=== PATIENT | male | born 1980 | race Caucasian/White ===

== ENCOUNTER 2020-07-06 13:26 | Emergency (ER) | payer OTHER, SELFPAY ==
--- NOTE | ~2020-07-06 | XR_ITS ---
XR lumbar spine 2-3V 07/06/2020 13:53 Indication: Low back pain Procedure: 3 views lumbar spine Comparison: No prior studies for comparison. Findings: There are facet degenerative changes at L4-5. There is lumbarization of L5. No fracture or traumatic malalignment. Pedicles intact. There is disc narrowing at L4-5. Sacral foramen are symmetri c. No acute fracture or traumatic malalignment. Impression: 1: Mild lumbar spondylosis. Reviewed, dictated and finalized at location A. Impression: 1: Mild lumbar spondylosis.
[2020-07-06 13:35] VITALS: BP 149/88; PULSE 66; RESP 18; TEMP 36.3; O2SAT 100
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
[2020-07-06] MEDS: CYCLOBENZAPRINE HCL 10 MG TABLET PO (13:59)
[2020-07-06] MEDS: traMADol HCL 50 MG TABLET PO (13:59)
[2020-07-06 14:28] VITALS: BP 121/73; PULSE 65; RESP 16; O2SAT 97
== END 2020-07-06 15:12 | disposition home or self-care (01) ==
PROVIDERS: Emergency Provider Emergency Medicine
DX: M54.41 Lumbago with sciatica, right side (principal)
CPT/HCPCS: 72100; 99283; A9270

== ENCOUNTER 2021-03-02 08:47 | Outpatient (CLI) | payer BC, OTHER, SELFPAY ==
[2021-03-02 09:08] LABS: Basophils Percent Auto 0.7 % (0.2-1.2); Eosinophils Absolute Auto 0.2 K/mm3 (0-0.3); Eosinophils Percent Auto 3.7 % (0-4.4); Hematocrit 42.3 % (42.0-52.0); Hemoglobin 13.8 g/dL (14.0-18.0); Immature Granulocyte Absolute 0.01 K/mm3 (0.00-0.031); Immature Granulocyte Percent A 0.2 % (0-0.5); Lymphocytes Absolute Auto 1.37 K/mm3 (0.9-3.2); Mean Corpuscular HGB Conc 32.6 g/dl (32-36); Mean Corpuscular Hemoglobin 26.7 pg (26-34); Mean Corpuscular Volume 81.8 fl (80-100); Mean Platelet Volume 10.3 fl (7.4-10.4); Monocytes Absolute Auto 0.6 K/mm3 (0.1-0.6); Monocytes Percent Auto 9.4 % (2.6-8.5); Neutrophils Absolute Auto 3.8 K/mm3 (1.3-6.7); Platelet Count Result 207 k/mm3 (150-375); Red Blood Count 5.17 M/mm3 (4.6-6.20); Red Cell Distribution Width 14.2 % (11.5-14.5)
[2021-03-02 09:21] LABS: Alanine Aminotransferase 25 U/L (4-50); Albumin Level 4.5 g/dL (3.5-5.1); Alkaline Phosphatase 71 U/L (38-126); Anion Gap 6 mmol/L (8-16); Aspartate Amino Transferase 22 U/L (17-59); Bilirubin,Total 0.3 mg/dL (0.2-1.3); Blood Urea Nitrogen 12 mg/dL (9-20); Calcium 9.8 mg/dL (8.4-10.2); Carbon Dioxide 31 mmol/L (22-30); Chloride 105 mmol/L (98-107); Cholesterol 146 mg/dL (0-200); Estimated Glomerular Filt Rate > 60; Glucose 105 mg/dL (75-110); HDL Direct 48 mg/dL; Potassium 4.3 mmol/L (3.4-5.0); Sodium 142 mmol/L (137-145); Triglycerides 96 mg/dL (<150)
[2021-03-02 09:32] LABS: LDL Cholesterol Direct 75 mg/dL
[2021-03-02 09:52] LABS: Prostate Specific Antigen 1.7 ng/mL (< OR = 4.0)
[2021-03-05 15:21] LABS: Testosterone Free 68.7 pg/mL (35.0-155.0); Testosterone Total 384 ng/dL (250-1100)
[2021-03-06 08:28] LABS: FSH 1.4 mIU/mL (1.6-8.0); LH 3.1 mIU/mL (1.5-9.3)
[2021-03-06 20:48] LABS: Estradiol, Ultrasensitive 22 pg/mL (< OR = 29)
== END 2021-03-02 08:48 | disposition home or self-care (01) ==
PROVIDERS: PCP Internal Medicine; Visit Provider Clinical Nurse Specialist
DX: Z12.5 Encounter for screening for malignant neoplasm of prostate (principal); J45.909 Unspecified asthma, uncomplicated; N52.9 Male erectile dysfunction, unspecified; E78.5 Hyperlipidemia, unspecified; R53.83 Other fatigue
CPT/HCPCS: 36415; 80053; 80061; 82670; 83001; 83002; 84153; 84402; 84403; 84443; 85025

== ENCOUNTER 2022-08-27 07:23 | Outpatient (CLI) | payer BC, MEDICAID, SELFPAY ==
[2022-08-27 08:13] LABS: Basophils Percent Auto 0.5 % (0.2-1.2); Eosinophils Absolute Auto 0.1 K/mm3 (0-0.3); Hematocrit 42.2 % (42.0-52.0); Hemoglobin 13.7 g/dL (14.0-18.0); Immature Granulocyte Absolute 0.06 K/mm3 (0.00-0.031); Lymphocytes Absolute Auto 1.53 K/mm3 (0.9-3.2); Lymphocytes Percent Auto 25.7 % (18.3-44.2); Mean Corpuscular HGB Conc 32.5 g/dl (32-36); Mean Corpuscular Hemoglobin 26.8 pg (26-34); Mean Corpuscular Volume 82.4 fl (80-100); Mean Platelet Volume 10.2 fl (7.4-10.4); Monocytes Absolute Auto 0.7 K/mm3 (0.1-0.6); Monocytes Percent Auto 11.1 % (2.6-8.5); Neutrophils Absolute Auto 3.6 K/mm3 (1.3-6.7); Neutrophils Percent Auto 59.7 % (45.5-73.1); Platelet Count Result 204 k/mm3 (150-375); Red Blood Count 5.12 M/mm3 (4.6-6.20); Red Cell Distribution Width 14.6 % (11.5-14.5)
[2022-08-27 08:24] LABS: Hemoglobin A1C 6.1 % (<5.7)
[2022-08-27 08:29] LABS: Alanine Aminotransferase 35 U/L (6-50); Albumin Level 4.4 g/dL (3.5-5.1); Alkaline Phosphatase 81 U/L (38-126); Anion Gap 11 mmol/L (8-16); Aspartate Amino Transferase 30 U/L (17-59); Bilirubin,Total 0.3 mg/dL (0.2-1.3); Blood Urea Nitrogen 13 mg/dL (9-20); Calcium 8.7 mg/dL (8.4-10.2); Carbon Dioxide 28 mmol/L (22-30); Chloride 103 mmol/L (98-107); Cholesterol 259 mg/dL (0-200); Estimated Glomerular Filt Rate > 60; Glucose 99 mg/dL (65-110); HDL Direct 35 mg/dL; Potassium 3.9 mmol/L (3.4-5.0); Sodium 142 mmol/L (137-145); Triglycerides 383 mg/dL (<150)
[2022-08-27 08:39] LABS: LDL Cholesterol Direct 132 mg/dL
[2022-08-27 11:21] LABS: Free T4 Free Thyroxine 0.71 ng/mL (0.78-2.19)
[2022-08-27 13:39] LABS: Vitamin D 25 Hydroxy 29.5 ng/mL
== END 2022-08-27 07:24 | disposition home or self-care (01) ==
PROVIDERS: PCP Family Medicine; Visit Provider Family Medicine
DX: R53.83 Other fatigue (principal); R73.9 Hyperglycemia, unspecified; E55.9 Vitamin D deficiency, unspecified; E78.5 Hyperlipidemia, unspecified
CPT/HCPCS: 36415; 80053; 80061; 82306; 83036; 84439; 84443; 85025

== ENCOUNTER 2022-11-19 08:48 | Outpatient (CLI) | payer BC, MEDICAID, SELFPAY ==
[2022-11-21 14:08] LABS: Lead, Blood <1.0 mcg/dL (<3.5)
[2022-11-26 15:49] LABS: Collection Sample Venous
== END 2022-11-19 08:49 | disposition home or self-care (01) ==
LOC: ANHGOSHLAB 08:50
PROVIDERS: PCP Family Medicine; Visit Provider Family Medicine
DX: Z77.011 Contact with and (suspected) exposure to lead (principal)
CPT/HCPCS: 36415; 83655

== ENCOUNTER 2022-12-01 08:56 | Outpatient (CLI) | payer BC, MEDICAID, SELFPAY ==
[2022-12-01 20:41] LABS: Alanine Aminotransferase 49 U/L (6-50); Albumin Level 4.2 g/dL (3.5-5.1); Alkaline Phosphatase 89 U/L (38-126); Anion Gap 7 mmol/L (8-16); Aspartate Amino Transferase 43 U/L (17-59); Bilirubin,Total 0.4 mg/dL (0.2-1.3); Blood Urea Nitrogen 20 mg/dL (9-20); Calcium 9.2 mg/dL (8.4-10.2); Carbon Dioxide 30 mmol/L (22-30); Chloride 103 mmol/L (98-107); Cholesterol 165 mg/dL (0-200); Estimated Glomerular Filt Rate > 60; Glucose 96 mg/dL (65-110); HDL Direct 30 mg/dL; Potassium 4.4 mmol/L (3.4-5.0); Sodium 140 mmol/L (137-145); Triglycerides 92 mg/dL (<150)
[2022-12-01 20:51] LABS: LDL Cholesterol Direct 95 mg/dL
== END 2022-12-01 08:57 | disposition home or self-care (01) ==
LOC: ANHGOSHLAB 08:57
PROVIDERS: PCP Family Medicine; Visit Provider Family Medicine
DX: E78.5 Hyperlipidemia, unspecified (principal); Z79.899 Other long term (current) drug therapy
CPT/HCPCS: 36415; 80053; 80061

== ENCOUNTER 2023-06-03 08:13 | Outpatient (CLI) | payer BC, MEDICAID, SELFPAY ==
--- NOTE | 2023-06-06 16:58 | WPDPFTINT ---
PFT Procedure Performed PFT Procedure Performed Spirometry with Pre/Post Bronchodilator Plethysmography (Lung Vol) Diffusing Cap (DLCO) Flow Vol Loop PFT Interpretation This is a pulmonary function test with pre and post-bronchodilator spirometry, plethysmography and diffusing capacity. The test was performed and results interpreted in accordance with the 2019 and 2005 ATS/ERS Task Force guidelines respectively using the Global Lung Function Initiative-2012 reference equations. Patient demonstrated good effort and cooperation. Reproducibility criteria were met. The quality of the pre bronchodilator spirometry maneuver was Grade A and post bronchodilator spirometry maneuver was Grade A. Findings: Spirometry: The contour the inspiratory and expiratory flow tracing are normal. The pre bronchodilator FVC is 4.13 L, 86% predicted. The pre bronchodilator FEV1 is 3.29 L, 86% predicted. The pre bronchodilator FEV1: FVC ratio is 80%. The post bronchodilator FVC is 4.28 L, representing a 4% increase. The post bronchodilator FEV1 is 3.56 L, representing an 8% increase. The post bronchodilator FEV1: FVC ratio was 83%. Plethysmography: The total lung capacity is 6.01 L, 92% predicted. The functional residual capacity is 2.71 L, 83% predicted. The residual volume is 1.54 L, 85% predicted. Diffusing capacity: The diffusing capacity unadjusted for hemoglobin and carboxyhemoglobin is 28.1, 91% predicted. The diffusing capacity adjusted for alveolar volume is 5.14, 107% predicted. Impression: The spirometry is normal without evidence of an obstructive abnormality. There is no significant improvement after inhaling a single dose of albuterol. The lung volumes are normal. The diffusing capacity is normal. There are no prior studies for comparison
== END 2023-06-03 08:14 | disposition home or self-care (01) ==
LOC: ANHPFT 08:14
PROVIDERS: PCP Family Medicine; Visit Provider Nurse Practitioner
DX: J45.909 Unspecified asthma, uncomplicated (principal)
CPT/HCPCS: 94060; 94726; 94729

== ENCOUNTER 2023-07-11 10:38 | Outpatient (CLI) | payer BC, MEDICAID, SELFPAY ==
--- NOTE | ~2023-07-11 | XR_ITS ---
EXAMINATION: XR facial bones min 3V DATE: 07/11/2023 10:58 INDICATION: Nose injury, initial encounter. TECHNIQUE: 4 views of the facial bones were obtained. COMPARISON: None. FINDINGS: There is leftward deviation of superior nasal septum and rightward deviation of inferior na shai septum. No fracture. IMPRESSION: 1. No fracture. Reviewed, dictated and finalized at location E. IMPRESSION: 1. No fracture.
== END 2023-07-11 10:39 | disposition home or self-care (01) ==
PROVIDERS: PCP Family Medicine; Visit Provider Clinical Nurse Specialist
DX: S09.92XA Unspecified injury of nose, initial encounter (principal)
CPT/HCPCS: 70150

== ENCOUNTER 2023-09-20 12:20 | Emergency (ER) | payer BC, MEDICAID, SELFPAY ==
[2023-09-20 12:32] VITALS: BP 154/94; PULSE 90; RESP 16; TEMP 36.4; O2SAT 99
--- NOTE | 2023-09-20 12:59 | ED.GENADULT ---
HPI - General Adult General Chief complaint: Wound/Laceration Stated complaint: INFECTED TOE Source: patient Mode of arrival: ambulatory Limitations: no limitations History of Present Illness HPI narrative: 43-year-old male presented for complaint of right great toe infection for about one week. States the toe has had a bump on it since 12/2022. At that time pt was prescribed doxy by pcp, but did not take the medication. States it has not changed until recently. Endorses swelling, redness, mild pain, and some pus around the nail. States he has been walking more with a new job. Related Data Home Medications Medication Instructions Recorded Confirmed buspirone 7.5 mg tablet 7.5 mg PO TID 02/10/21 07/11/23 mometasone-formoterol HFA 50 mcg-5 inhalation 02/10/21 07/11/23 mcg/actuation aerosol inhaler (Dulera) montelukast 10 mg tablet 10 mg PO DAILY 02/10/21 07/11/23 bupropion HCl 150 mg 24 hr tablet, 300 mg PO QAM 08/03/21 07/11/23 extended release armodafinil 250 mg tablet 250 mg PO DAILY 03/17/22 07/11/23 desvenlafaxine 50 mg 50 mg PO DAILY 03/17/22 07/11/23 tablet,extended release 24 hr Allergies Allergy/AdvReac Type Severity Reaction Status Date / Time No Known Allergies Allergy Mild Verified 09/20/23 12:32 Review of Systems Review of Systems: CONSTITUTIONAL: Denies body aches, fever, chills, or sweats. EYES: Denies visual changes, redness, or discharge. ENT: Denies rhinorrhea, congestion CARDIOVASCULAR: Denies chest pain, palpitations, or edema. RESPIRATORY: Denies cough or dyspnea. GASTROINTESTINAL: Denies abdominal pain, nausea, vomiting, or diarrhea. SKIN: reports skin infection on toe MUSCULOSKELETAL: Denies back pain, joint pain, or myalgia. NEUROLOGIC: Denies headache, numbness, tingling, or weakness. [facility] Past Medical History Medical History Allergies Anxiety Arthritis Asthma Family History Family History Mother Asthma Sibling Asthma Social History Social History Social History: caffeine- 4-5 can of soda daily Smoking status: Former smoker Smoking end date: 10/24/07 Alcohol intake: never Substance use type: does not use Lack of Transportation: No Lack of Food: Never True Current Housing: I Have Housing Concerned About Future Housing: No Difficulty Paying Gas/Electric Bills: No Difficulty Paying for Meds: No Currently Unemployed: No Education: Associate Degree Difficulty w/ Childcare or Family Care: No Gender identity (if verbalized by the patient): Male Comments At time of signature, I have reviewed and agree with nursing past medical, surgical, social and family history unless otherwise noted. Please see nursing chart for further information. There is no relevant family history pertinent to the presenting complaint Exam Narrative: GENERAL: Well-appearing HEAD: Normocephalic, atraumatic. EYES: conjunctivae clear, and EOMI. ENT: Mucous membranes moist. Oropharynx without edema, erythema or lesions. NECK: Supple. No lymphadenopathy CHEST: Clear to auscultation. HEART: Regular rate and rhythm. SKIN: Warm, dry. Right great toe with mild swelling and erythema to the base of the nail. Skin is cracked and flaky. Mildly tender with palpation. No active drainage or fluctuance. Nail intact. NEURO: Alert and oriented x3. Extrem: Ankle/foot/toe images: 1. localized area of swelling and erythema to base of nail Course Course Emergency Course: Patient is aware of diagnosis, understands and agrees to treatment plan. Anticipatory guidance given. Patient agrees to follow-up as directed and is aware of reasons to seek care at the emergency department. Portions of this record may have been created with voice recognition software Level of Care: Express Care Visit Vit
== END 2023-09-20 13:10 | disposition home or self-care (01) ==
PROVIDERS: Emergency Provider Nurse Practitioner Family; PCP Family Medicine
DX: L03.031 Cellulitis of right toe (principal); Z87.891 Personal history of nicotine dependence; M19.90 Unspecified osteoarthritis, unspecified site; J45.909 Unspecified asthma, uncomplicated; F41.9 Anxiety disorder, unspecified
CPT/HCPCS: 99213; G0463

== ENCOUNTER 2023-11-22 00:41 | Day surgery (SDC) | payer BC, MEDICAID, SELFPAY ==
[2023-10-25 15:46] VITALS: BMI 34.2
--- NOTE | 2023-11-18 12:31 | SUR.PREOP ---
Patient called regarding upcoming procedure. Message left on pt's voicemail regarding appointment times.
[2023-11-22 08:34] VITALS: BP 119/80; PULSE 91; RESP 19; TEMP 36.6; O2SAT 98
[2023-11-22] MEDS: LACTATED RINGERS 1,000 ML 150 ML IV CONT (08:43)
--- NOTE | 2023-11-22 09:17 | WPDANESEPPF ---
Anes - Initial Pre Proc Eval Procedure: Operation Date: 11/22/23 09:30 Proposed Procedures p Screening Colonoscopy - Sean Arevalo MD Date/Time: 11/22/23 09:17 Surgeon: Sean Arevalo MD Pre Op Diagnosis: neoplasm screening Patient Data Age: 43 Gender: M Height: 1.73 m Weight: 98.8 kg Last Vital Signs Temp 97.8 F 11/22/23 08:34 Pulse 91 11/22/23 08:34 Resp 19 11/22/23 08:34 BP 119/80 11/22/23 08:34 Pulse Ox 98 11/22/23 08:34 O2 Del Method Room Air 11/22/23 08:34 Allergies Allergy/AdvReac Type Severity Reaction Status Date / Time No Known Allergies Allergy Mild Verified 11/22/23 08:34 Home Medications Medication Instructions Recorded Confirmed Type buspirone 7.5 mg tablet 7.5 mg PO TID 02/10/21 11/18/23 History mometasone-formoterol HFA 50 mcg-5 1 inh inhalation DAILY 02/10/21 11/18/23 History mcg/actuation aerosol inhaler (Dulera) montelukast 10 mg tablet 10 mg PO DAILY 02/10/21 11/18/23 History hydrocortisone 2.5 % topical cream 1 applic RECTAL DAILY PRN 02/12/21 11/18/23 Rx with perineal applicator hemorrhoids #30 grams (Proctosol HC) bupropion HCl 150 mg 24 hr tablet, 300 mg PO QAM 08/03/21 11/18/23 History extended release armodafinil 250 mg tablet 250 mg PO DAILY 03/17/22 11/18/23 History desvenlafaxine 50 mg 50 mg PO DAILY 03/17/22 11/18/23 History tablet,extended release 24 hr omeprazole 40 mg capsule,delayed 40 mg PO DAILY #90 caps 12/17/22 11/18/23 Rx release albuterol sulfate 90 mcg/actuation 1 puff inhalation Q4H PRN 02/14/23 11/18/23 Rx aerosol inhaler (Ventolin HFA) shortness of breath or wheezing #8.5 grams CPAP mask #1 ea 09/12/23 09/28/23 Rx mupirocin 2 % topical ointment 1 applic topical BID 14 days #22 09/20/23 11/18/23 Rx grams Patient hx anesthesia problems: none Family hx anesthesia problems: none Results Review: All pre-operative results and documents have been reviewed as part of the pre-operative evaluation. ON LICENSE OF [facility] Past Medical History Medical History Allergies Anxiety Arthritis Asthma Family History Family History Mother Asthma Sibling Asthma Social History Social History Social History: caffeine- 4-5 can of soda daily Smoking packs per day: 1 Smoking cigarettes per day: 20.0 Years smoked: 10 Smoking pack-years: 10.00 Smoking status: Former smoker Tobacco type: cigarettes Smoking end date: 10/24/08 Alcohol intake: current Drinks per week: 3 Alcohol use details: RARE Substance use: never Substance use type: does not use Lack of Transportation: No Lack of Food: Never True Current Housing: I Have Housing Concerned About Future Housing: No Difficulty Paying Gas/Electric Bills: No Difficulty Paying for Meds: No Currently Unemployed: No Education: Associate Degree Difficulty w/ Childcare or Family Care: No Living arrangements: with family Gender identity (if verbalized by the patient): Male Spiritual care concerns: No Anes - Eval Final PreProcedure Day of Procedure 11/22/23 09:17 Patient weight: obese Heart: regular rate and rhythm Lungs: clear to auscultation Airway: Mallampati scale class II Neurological: alert and oriented Last oral intake: >/= 8 hours ASA classification: II Emergent: no Anesthetic plan: proceed Anesthesia type and monitoring: general GIVS and standard monitoring Results Review: All pre-operative results and documents have been reviewed as part of the pre-operative evaluation. Informed Consent: The patient's anesthetic plan and its attendant risks and benefits were discussed with the patient/family/POA. Questions were solicited and answers provided to the satisfaction of the patient/family/POA.
--- NOTE | 2023-11-22 09:30 | PM.HPGS ---
History of Present Illness History of Present Illness Consent: Risks, benefits, and alternatives have been discussed and questions answered. Patient agrees to proceed with procedure. Chief complaint: neoplasm screening Narrative: Mukul Younger is a 43 year old male here for first screening colonoscopy Review of Systems Constitutional: Constitutional: Denies headache(s) and Denies weakness Eyes: Eyes: Denies blurry vision ENT: Reports Normal hearing present, Denies headache(s) and Denies neck pain Cardiovascular: Cardiovascular: Denies chest pain and Denies dyspnea Respiratory: Respiratory: Denies dyspnea Gastrointestinal: Gastrointestinal: Reports no additional gastrointestinal complaints Genitourinary: Genitourinary: Denies dysuria Musculoskeletal: Musculoskeletal: Denies neck pain Integumentary/Breasts: Skin/Breast: Denies dry skin Neurologic: Reports Normal hearing present, Denies headache(s) and Denies weakness Psychiatric: Psychiatric: Denies anxiety Endocrine: Endocrine: Denies change in body appearance Hematologic/Lymphatic: Hematologic/Lymphatic: Denies easy bleeding Allergic/Immunologic: Allergic/Immunologic: Denies urticaria PMF Past Medical History Medical History (Updated 11/22/23 @ 09:31 by Sean Arevalo MD) Allergies Anxiety Arthritis Asthma Colon cancer screening Family History Family History Mother Asthma Sibling Asthma Social History Social History Social History: caffeine- 4-5 can of soda daily Smoking packs per day: 1 Smoking cigarettes per day: 20.0 Years smoked: 10 Smoking pack-years: 10.00 Smoking status: Former smoker Tobacco type: cigarettes Smoking end date: 10/24/08 Alcohol intake: current Drinks per week: 3 Alcohol use details: RARE Substance use: never Substance use type: does not use Lack of Transportation: No Lack of Food: Never True Current Housing: I Have Housing Concerned About Future Housing: No Difficulty Paying Gas/Electric Bills: No Difficulty Paying for Meds: No Currently Unemployed: No Education: Associate Degree Difficulty w/ Childcare or Family Care: No Living arrangements: with family Gender identity (if verbalized by the patient): Male Spiritual care concerns: No Meds Home Medications and Allergies Home Medications Medication Instructions Recorded Confirmed Type buspirone 7.5 mg tablet 7.5 mg PO TID 02/10/21 11/18/23 History mometasone-formoterol HFA 50 mcg-5 1 inh inhalation DAILY 02/10/21 11/18/23 History mcg/actuation aerosol inhaler (Dulera) montelukast 10 mg tablet 10 mg PO DAILY 02/10/21 11/18/23 History hydrocortisone 2.5 % topical cream 1 applic RECTAL DAILY PRN 02/12/21 11/18/23 Rx with perineal applicator hemorrhoids #30 grams (Proctosol HC) bupropion HCl 150 mg 24 hr tablet, 300 mg PO QAM 08/03/21 11/18/23 History extended release armodafinil 250 mg tablet 250 mg PO DAILY 03/17/22 11/18/23 History desvenlafaxine 50 mg 50 mg PO DAILY 03/17/22 11/18/23 History tablet,extended release 24 hr omeprazole 40 mg capsule,delayed 40 mg PO DAILY #90 caps 12/17/22 11/18/23 Rx release albuterol sulfate 90 mcg/actuation 1 puff inhalation Q4H PRN 02/14/23 11/18/23 Rx aerosol inhaler (Ventolin HFA) shortness of breath or wheezing #8.5 grams CPAP mask #1 ea 09/12/23 09/28/23 Rx mupirocin 2 % topical ointment 1 applic topical BID 14 days #22 09/20/23 11/18/23 Rx grams Allergies Allergy/AdvReac Type Severity Reaction Status Date / Time No Known Allergies Allergy Mild Verified 11/22/23 08:34 Vital Signs Vital Signs - 24 hr 11/22/23 08:34 Temperature 97.8 F Pulse Rate 91 Respiratory Rate 19 Blood Pressure 119/80 Pulse Oximetry 98 Oxygen Delivery Room Air Exam Const: General: comfortable and no acut
[2023-11-22 09:57] VITALS: BP 96/60; PULSE 99; RESP 24; O2SAT 95
[2023-11-22 10:07] VITALS: BP 100/67; PULSE 97; RESP 24; O2SAT 97
[2023-11-22 10:17] VITALS: BP 113/75; PULSE 93; RESP 20; O2SAT 97
== END 2023-11-22 10:28 | disposition home or self-care (01) ==
PROVIDERS: PCP Family Medicine; Visit Provider Internal Medicine Gastroenterology
PROC: 0DJD8ZZ Inspection of Lower Intestinal Tract, Via Natural or Artificial Opening Endoscopic (ICD-10-PCS; CPT 45378; principal; 2023-11-22 09:30)
DX: Z12.11 Encounter for screening for malignant neoplasm of colon (principal); J45.909 Unspecified asthma, uncomplicated; F41.9 Anxiety disorder, unspecified; Z87.891 Personal history of nicotine dependence; E66.9 Obesity, unspecified; Z68.33 Body mass index [BMI] 33.0-33.9, adult; Z79.51 Long term (current) use of inhaled steroids
CPT/HCPCS: 45378; J2704; J7120

== ENCOUNTER 2023-11-29 00:27 | Day surgery (SDC) | payer BC, MEDICAID, SELFPAY ==
[2023-11-18 12:10] VITALS: BMI 34.2
--- NOTE | 2023-11-18 12:15 | PC.NURSE ---
Report to the Outpatient Waiting Room, entrance under the green pavilion located off [facility], at time 1030 on date 11/29/23. Planned Procedure Time: 1230. Time changes happen often and if your time is changed the preop area will call you the afternoon before. - You and your visitor will be asked to self-screen and do not enter if you have any COVID symptoms. - A mask is optional within the hospital at this time. Patients may have clear liquids (water, carbonated beverages, clear teas, apple juice) until 3 hours prior to surgery with a maximum of 20 ounces. - No food from midnight until time of surgery Take the following medications with a SIP of water the morning of surgery: INHALERS, BUPROPION, BUSPIRONE, DESVENLAFAXINE DO NOT STOP ANY OF YOUR OTHER PRESCRIPTION MEDICATIONS PRIOR TO SURGERY ?EXCEPT THE FOLLOWING Medications to discontinue per physician: N/A Date to take last dose: N/A Please no make-up, nail guinean, hairspray, perfume, deodorant, or body powder the day of surgery. No jewelry (including any body piercings) or valuables the day of surgery, leave them at home. Please take a shower or bath the night before, or the morning of, surgery with an antibacterial soap. Wear comfortable, loose fitting clothing. - Jewelry must be removed prior to entering the operating room. Rings and piercings that are not removed may be cut off. - The hospital will not accept responsibility for valuables. - Please leave all valuables, including medications, at home the day of surgery. If you are going home after surgery, a licensed carrier driver must drive you home. - NO public transportation without another adult if you receive anesthesia. - We recommend that an adult stay with you for 24 hours following discharge. - We also recommend that you do not drive, make important decision, drink alcoholic beverages, or take any drugs that were not prescribed by your health care provider for at least 24 hours after your discharge time. Follow any additional instructions given to you from your surgeon. If you or anyone in your household have experienced Covid symptoms in the past week, please notify your surgeon or the nurse liaison at the phone number below for possible testing. Telephone instructions given to PT - NIMCO JONES and asked if any additional questions and then verbalized understanding. Patient advised to call surgeon office or pre surgery nurse liaison [phone] if any additional questions.
--- NOTE | 2023-11-27 16:24 | PM.IMHP ---
H&P: HPI History of Present Illness Date/Time: 11/27/23 16:24 Chief Complaint: septal deviation turbinate hypertrophy Narrative: planned procedure Review of Systems Review of Systems: All systems reviewed & are unremarkable except as noted in HPI and below PMFSH Past Medical History Medical History (Updated 11/27/23 @ 16:25 by Blane Lynn MD) Allergies Anxiety Arthritis Asthma Colon cancer screening Family History Family History Mother Asthma Sibling Asthma Social History Social History Social History: caffeine- 4-5 can of soda daily Smoking packs per day: 1 Smoking cigarettes per day: 20.0 Years smoked: 10 Smoking pack-years: 10.00 Smoking status: Former smoker Tobacco type: cigarettes Smoking end date: 10/24/08 Alcohol intake: current Drinks per week: 3 Alcohol use details: RARE Substance use: never Substance use type: does not use Lack of Transportation: No Lack of Food: Never True Current Housing: I Have Housing Concerned About Future Housing: No Difficulty Paying Gas/Electric Bills: No Difficulty Paying for Meds: No Currently Unemployed: No Education: Associate Degree Difficulty w/ Childcare or Family Care: No Living arrangements: with family Gender identity (if verbalized by the patient): Male Spiritual care concerns: No Meds Home Medications and Allergies Home Medications Medication Instructions Recorded Confirmed Type buspirone 7.5 mg tablet 7.5 mg PO TID 02/10/21 11/18/23 History mometasone-formoterol HFA 50 mcg-5 1 inh inhalation DAILY 02/10/21 11/18/23 History mcg/actuation aerosol inhaler (Dulera) montelukast 10 mg tablet 10 mg PO DAILY 02/10/21 11/18/23 History hydrocortisone 2.5 % topical cream 1 applic RECTAL DAILY PRN 02/12/21 11/18/23 Rx with perineal applicator hemorrhoids #30 grams (Proctosol HC) bupropion HCl 150 mg 24 hr tablet, 300 mg PO QAM 08/03/21 11/18/23 History extended release armodafinil 250 mg tablet 250 mg PO DAILY 03/17/22 11/18/23 History desvenlafaxine 50 mg 50 mg PO DAILY 03/17/22 11/18/23 History tablet,extended release 24 hr omeprazole 40 mg capsule,delayed 40 mg PO DAILY #90 caps 12/17/22 11/18/23 Rx release albuterol sulfate 90 mcg/actuation 1 puff inhalation Q4H PRN 02/14/23 11/18/23 Rx aerosol inhaler (Ventolin HFA) shortness of breath or wheezing #8.5 grams CPAP mask #1 ea 09/12/23 09/28/23 Rx mupirocin 2 % topical ointment 1 applic topical BID 14 days #22 09/20/23 11/18/23 Rx grams Allergies Allergy/AdvReac Type Severity Reaction Status Date / Time No Known Allergies Allergy Mild Verified 11/22/23 08:34 Exam Narrative: septal deviation turbinate hypertrophy Assessment and Plan Assessment and plan (1) Nasal septal deviation: Code(s): J34.2 - Deviated nasal septum Status: Acute Assessment and Plan: Plan moving forward OR for septoplasty endoscopic assisted need at least 2 hours would have to do a hemitransection incision up front.? His severe left caudal deviation.? And turbinate reduction bilaterally with outfracture inferior.? Risks were discussed including bleeding infection deaths high risk of cosmetic deformity given the caudal obstruction failure to resolve symptoms septal perforation CSF leak brain brain damage change in vision total blindness need for further procedures failure to resolve symptoms damage to any structures above the clavicle by myself damage to any structures during the induction and maintenance of anesthesia. (2) Hypertrophy of both inferior nasal turbinates: Code(s): J34.3 - Hypertrophy of nasal turbinates Status: Acute
[2023-11-29] VITALS (7 sets, daily range): BP systolic 109–145; BP diastolic 68–93; PULSE 83–103; RESP 11–16; TEMP 36.2–36.4; O2SAT 93–100
--- NOTE | 2023-11-29 07:16 | WPDHPUPDATE1 ---
History and Physical Update Update Date/Time: 11/29/23 07:16 History and Physical has been reviewed, including an updated exam of the patient. There are NO changes in the patient's condition. Risks, benefits, and alternatives have been discussed and questions answered. Patient agrees to proceed with procedure.
[2023-11-29] MEDS: LACTATED RINGERS 1,000 ML 30 ML IV CONT ×2 (10:37→14:19)
[2023-11-29] MEDS: ACETAMINOPHEN 500 MG TABLET 1000 MG PO (10:37)
--- NOTE | 2023-11-29 11:53 | WPDANESEPPF ---
Anes - Initial Pre Proc Eval Procedure: Operation Date: 11/29/23 12:45 Proposed Procedures p Endoscopic Assisted Septoplasty - Blane Lynn MD s Bilateral Inferior Turbinate Reduction with Outfracture - Blane Lynn MD Date/Time: 11/29/23 11:53 Surgeon: Blane Lynn MD Pre Op Diagnosis: Septal Dev, Turbinate Hypertrophy Patient Data Age: 43 Gender: M Height: 1.73 m Weight: 102.1 kg Last Vital Signs Temp 36.4 C 11/29/23 10:19 Pulse 83 11/29/23 10:19 Resp 16 11/29/23 10:19 BP 131/84 11/29/23 10:19 Pulse Ox 99 11/29/23 10:19 O2 Del Method Room Air 11/29/23 10:19 Allergies Allergy/AdvReac Type Severity Reaction Status Date / Time No Known Allergies Allergy Mild Verified 11/29/23 10:14 Home Medications Medication Instructions Recorded Confirmed Type buspirone 7.5 mg tablet 7.5 mg PO TID 02/10/21 11/18/23 History mometasone-formoterol HFA 50 mcg-5 1 inh inhalation DAILY 02/10/21 11/18/23 History mcg/actuation aerosol inhaler (Dulera) montelukast 10 mg tablet 10 mg PO DAILY 02/10/21 11/18/23 History hydrocortisone 2.5 % topical cream 1 applic RECTAL DAILY PRN 02/12/21 11/18/23 Rx with perineal applicator hemorrhoids #30 grams (Proctosol HC) bupropion HCl 150 mg 24 hr tablet, 300 mg PO QAM 08/03/21 11/18/23 History extended release armodafinil 250 mg tablet 250 mg PO DAILY 03/17/22 11/18/23 History desvenlafaxine 50 mg 50 mg PO DAILY 03/17/22 11/18/23 History tablet,extended release 24 hr omeprazole 40 mg capsule,delayed 40 mg PO DAILY #90 caps 12/17/22 11/18/23 Rx release albuterol sulfate 90 mcg/actuation 1 puff inhalation Q4H PRN 02/14/23 11/18/23 Rx aerosol inhaler (Ventolin HFA) shortness of breath or wheezing #8.5 grams CPAP mask #1 ea 09/12/23 09/28/23 Rx mupirocin 2 % topical ointment 1 applic topical BID 14 days #22 09/20/23 11/18/23 Rx grams Patient hx anesthesia problems: none Family hx anesthesia problems: none Results Review: All pre-operative results and documents have been reviewed as part of the pre-operative evaluation. [facility] Past Medical History Medical History Allergies Anxiety Arthritis Asthma Colon cancer screening Surgical History Surgical History (Updated 11/29/23 @ 11:54 by Conner Morse MD) H/O colonoscopy History of lumbar surgery Family History Family History Mother Asthma Sibling Asthma Social History Social History Social History: caffeine- 4-5 can of soda daily Smoking packs per day: 1 Smoking cigarettes per day: 20.0 Years smoked: 10 Smoking pack-years: 10.00 Smoking status: Former smoker Tobacco type: cigarettes Smoking end date: 10/24/08 Alcohol intake: current Drinks per week: 3 Alcohol use details: RARE Substance use: never Substance use type: does not use Lack of Transportation: No Lack of Food: Never True Current Housing: I Have Housing Concerned About Future Housing: No Difficulty Paying Gas/Electric Bills: No Difficulty Paying for Meds: No Currently Unemployed: No Education: Associate Degree Difficulty w/ Childcare or Family Care: No Living arrangements: with family Gender identity (if verbalized by the patient): Male Spiritual care concerns: No Anes - Eval Final PreProcedure Day of Procedure 11/29/23 11:53 Patient weight: obese Heart: regular rate and rhythm Lungs: clear to auscultation Airway: Mallampati scale class II Neurological: alert and oriented Last oral intake: >/= 8 hours ASA classification: III Emergent: no Anesthetic plan: proceed Anesthesia type and monitoring: general ETT and standard monitoring Results Review: All pre-operative results and documents have been reviewed as part of the pre-operative evaluation. Informed Consent: The mare
[2023-11-29] MEDS: ceFAZolin 2 GM/D5W 50 ML 2 GM/50 ML BAG IVPB (12:32)
[2023-11-29] MEDS: LIDO 1%/EPINEPHRINE 1:100,000 20 ML VIAL 10 ML INFILTRATE (12:48)
[2023-11-29] MEDS: OXYMETAZOLINE HCL 0.05% NAS 15 ML BTL (*BKC) 1 SPRAY NASAL (12:48)
[2023-11-29] MEDS: HEMOSTATIC MATRIX (SURGIFLO with THROMBIN) KIT 1 KIT XX (13:48)
[2023-11-29] MEDS: MUPIROCIN 2% OINT 22 GM TUBE 1 APPLIC EACH NARE (14:04)
--- NOTE | 2023-11-29 14:48 | W.PM.PROC2 ---
Procedure Note - Detailed Date of Procedure 11/29/23 Pre-op Diagnosis Septal Dev, Turbinate Hypertrophy Post-op Diagnosis Same Procedure Performed Endoscopic assisted septoplasty inferior turbinate reduction with outfractu Surgeon Blane Lynn MD Anesthesia General Indications see above Findings severe left septal [place] incision utilized. No cosmetic deformity no concomitant tears. Turbinate hypertrophy well reduced most was bony. Description of Procedure Patient identified consent verified preop. Patient brought to the operating room. Time-out performed. General anesthesia induced endotracheal tube secured airway. Patient prepped draped position procedure confirmed 2nd time-out performed. Afrin-soaked pledgets placed for 5 minutes then removed. 0 degree endoscope utilized. Total 13 cc 1% lidocaine 1 100,000 parts epinephrine injected in the bilateral nasal septum. Inferior turbinates. Anterior [place] incision made left side with 15 blade left nasal septal flap elevated with 7 Czech suction. Osteotome utilized to cross over anteriorly right nasal septal flap elevated small tear posteriorly over spur as there is right-sided spur posterior deviation. Deviated septum removed Donta Herrera forceps Anh forceps and osteotome. Multiple in a 1 tear on each side not concomitant. The left was actually just an extension of the [place] incision inferiorly. FloSeal packed against the inferior portion of the maxillary crest this was bleeding minimally. Bleeding enough to put FloSeal against but bleeding minimally. [place] incision then closed with 4 interrupted 5 0 fast gut sutures. Turbinates reduced in submucosal plane using [employer] microdebrider with 2.5 mm plate. Turbinates and outfracture. Small amount of FloSeal placed anterior portion the inferior turbinates. Stallings splints placed sutured anteriorly using a 3-0 mattress nylon suture. Blood loss 15 cc. I performed all dictated portions procedure no complications. Care the patient given back to Anesthesiology. Patient taken to PACU. Estimated Blood Loss 15 Drains No Packing No Pathology None sent Complications No immediate complications Condition Stable Disposition PACU [facility] Billing Surgery - Charge Forward: Surgery Billing
== END 2023-11-29 15:31 | disposition home or self-care (01) ==
PROVIDERS: PCP Family Medicine; Visit Provider Otolaryngology
PROC: (CPT 30520; principal; 2023-11-29 12:45)
PROC: (CPT 30520; 2023-11-29 12:45)
DX: J34.3 Hypertrophy of nasal turbinates (principal); J34.2 Deviated nasal septum; J45.909 Unspecified asthma, uncomplicated; F41.9 Anxiety disorder, unspecified; Z79.51 Long term (current) use of inhaled steroids; Z87.891 Personal history of nicotine dependence; E66.9 Obesity, unspecified; Z68.34 Body mass index [BMI] 34.0-34.9, adult
CPT/HCPCS: 30520; 30140; A9270; J0330; J0690; J1100; J2250; J2405; J2704; J3010; J7050; J7120

== ENCOUNTER 2024-01-16 07:42 | Outpatient (CLI) | payer BC, MEDICAID, SELFPAY ==
[2024-01-16 08:05] LABS: Basophils Percent Auto 0.5 % (0.2-1.2); Eosinophils Absolute Auto 0.2 K/mm3 (0-0.3); Hematocrit 42.8 % (42.0-52.0); Hemoglobin 13.9 g/dL (14.0-18.0); Immature Granulocyte Absolute 0.02 K/mm3 (0.00-0.031); Immature Granulocyte Percent A 0.3 % (0-0.5); Lymphocytes Percent Auto 24.2 % (18.3-44.2); Mean Corpuscular HGB Conc 32.5 g/dl (32-36); Mean Corpuscular Hemoglobin 27.9 pg (26-34); Mean Corpuscular Volume 85.8 fl (80-100); Monocytes Absolute Auto 0.5 K/mm3 (0.1-0.6); Monocytes Percent Auto 9.3 % (2.6-8.5); Neutrophils Absolute Auto 3.6 K/mm3 (1.3-6.7); Neutrophils Percent Auto 61.7 % (45.5-73.1); Platelet Count Result 215 k/mm3 (150-375); Red Blood Count 4.99 M/mm3 (4.6-6.20); Red Cell Distribution Width 14.6 % (11.5-14.5); White Blood Count 5.8 K/mm3 (4.5-10.0)
[2024-01-16 08:14] LABS: Alanine Aminotransferase 27 U/L (6-50); Albumin Level 4.3 g/dL (3.5-5.1); Alkaline Phosphatase 100 U/L (38-126); Anion Gap 3 mmol/L (8-16); Aspartate Amino Transferase 26 U/L (17-59); Bilirubin,Total 0.4 mg/dL (0.2-1.3); Blood Urea Nitrogen 15 mg/dL (9-20); Calcium 9.6 mg/dL (8.4-10.2); Carbon Dioxide 34 mmol/L (22-30); Chloride 103 mmol/L (98-107); Cholesterol 239 mg/dL (0-200); Estimated Glomerular Filt Rate > 60; Glucose 104 mg/dL (65-110); HDL Direct 33 mg/dL; Potassium 4.3 mmol/L (3.4-5.0); Sodium 140 mmol/L (137-145); Triglycerides 328 mg/dL (<150)
[2024-01-16 08:25] LABS: LDL Cholesterol Direct 136 mg/dL
[2024-01-16 08:53] LABS: Free T4 Free Thyroxine 0.63 ng/mL (0.78-2.19); Vitamin D 25 Hydroxy 85.6 ng/mL
== END 2024-01-16 07:43 | disposition home or self-care (01) ==
LOC: ANHLAB 07:44
PROVIDERS: PCP Family Medicine; Visit Provider Family Medicine
DX: E55.9 Vitamin D deficiency, unspecified (principal); R73.03 Prediabetes; E78.5 Hyperlipidemia, unspecified; R53.83 Other fatigue
CPT/HCPCS: 36415; 80053; 80061; 82306; 83036; 84439; 84443; 85025

== ENCOUNTER 2024-10-23 08:10 | Outpatient (CLI) | payer BC, MEDICAID, SELFPAY ==
[2024-10-23 09:01] LABS: Alanine Aminotransferase 31 U/L (6-50); Albumin Level 4.3 g/dL (3.5-5.1); Alkaline Phosphatase 84 U/L (38-126); Anion Gap 3 mmol/L (4-12); Aspartate Amino Transferase 27 U/L (17-59); Bilirubin,Total 0.5 mg/dL (0.2-1.3); Blood Urea Nitrogen 14 mg/dL (9-20); Calcium 9.3 mg/dL (8.4-10.2); Carbon Dioxide 32 mmol/L (22-30); Chloride 104 mmol/L (98-107); Cholesterol 270 mg/dL (0-200); Estimated Glomerular Filt Rate > 60; Glucose 106 mg/dL (65-110); HDL Direct 40 mg/dL; Potassium 4.3 mmol/L (3.4-5.0); Sodium 139 mmol/L (137-145); Triglycerides 243 mg/dL (<150)
[2024-10-23 09:12] LABS: LDL Cholesterol Direct 152 mg/dL
[2024-10-23 09:16] LABS: Hemoglobin A1C 6.2 % (<5.7)
== END 2024-10-23 08:11 | disposition home or self-care (01) ==
PROVIDERS: PCP Family Medicine
DX: E66.09 Other obesity due to excess calories (principal)
CPT/HCPCS: 36415; 80053; 80061; 83036; 84443

== ENCOUNTER 2025-04-10 07:28 | Outpatient (CLI) | payer BC, MEDICAID, SELFPAY ==
--- OUTSIDE RECORDS SUMMARY | 2025-04-10 07:33 | XMS_ITS | Patient Health Record ---
Author Organization [facility] [employer] Address [address] [place] [address] Care Team Providers Care Business Operations Specialist Name Role Phone Marion RODRIGUEZ DO Primary Care Provider Unava Marlyn Rodriguez Unavailable [phone] JordenDoug kerrjay Unavailable [phone] Jeri Capone Unavailable [phone] Allergies No Known Allergies Results Component Value Reference Range Notes Methylphenidate Reviewed date:02/04/2025 02:49:09 PM Interpretation: Performing Lab:[address] [place] [address], [address] [place] [address], Director - [id number] Notes/Report: An exception occurred while processing this report and so it has incomplete data. Please contact [facility] for assistance. Methylphenidate 305.8 50.0 ng/mL Medicated Co nsistent PDF Report CE_OUT_RAW_C OMMON_SRC_OR U Stimulants Reviewed date:02/04/2025 02:49:36 PM Interpretation: Performing Lab: Notes/Report: NEED PHYSICIAN SIGNATURE Reviewed date:02/04/2025 02:49:16 PM Interpretation: Performing Lab: Notes/Report: Screening Reviewed date:02/04/2025 02:49:13 PM Interpretation: Performing Lab: Notes/Report: UDT Reviewed date:03/29/2025 11:50:37 AM Interpretation: Performing Lab: Notes/Report: THC n 0 - 50 ng/ml Cocaine n 0 - 300 ng/ml Amphetamine p 0 - 1000 ng/ml Buprenorphine (BUP) n 0 - 10 ng/ml Secobarbital (Bar) n 0 - 300 ng/ml Oxazepam (BZO) n 0 - 300 ng/ml 7-mxrxkjuunw-2,2-vogersnj-8, 3-diphen ylpyrrolidine (EDDP) n 0 - 300 ng/ml Methamphetamine (MET) n 0 - 1000 ng/ml Methylenedioxymethamphetamine (MDMA) n 0 - 500 ng/ml Morphine (MOP 300/WKZ3510) n 0 - 300 ng/ml Methadone (MTD) n 0 - 300 ng/ml Phencyclidine (PCP) n 0 - 25 ng/ml Nortriptyline (TCA) n 0 - 1000 ng/ml Oxycodone n 0 - 300 ng/ml x n 0 - 300 ng/ml UDT Reviewed date:02/22/2025 12:22:29 PM Interpretation: Performing Lab: Notes/Report: THC N 0 - 50 ng/ml Cocaine N 0 - 300 ng/ml Amphetamine P 0 - 1000 ng/ml Buprenorphine (BUP) N 0 - 10 ng/ml Secobarbital (Bar) N 0 - 300 ng/ml Oxazepam (BZO) N 0 - 300 ng/ml 4-plcefebmnk-9,1-macfxbmg-9, 3-diphen ylpyrrolidine (EDDP) N 0 - 300 ng/ml Methamphetamine (MET) N 0 - 1000 ng/ml Methylenedioxymethamphetamine (MDMA) N 0 - 500 ng/ml Morphine (MOP 300/[id number]) N 0 - 300 ng/ml Methadone (MTD) N 0 - 300 ng/ml Phencyclidine (PCP) N 0 - 25 ng/ml Nortriptyline (TCA) N 0 - 1000 ng/ml Oxycodone N 0 - 300 ng/ml x N 0 - 300 ng/ml UDT Reviewed date:01/24/2025 01:39:29 PM Interpretation: Performing Lab: Notes/Report: THC N 0 - 50 ng/ml Cocaine N 0 - 300 ng/ml Amphetamine N 0 - 1000 ng/ml Buprenorphine (BUP) N 0 - 10 ng/ml Secobarbital (Bar) N 0 - 300 ng/ml Oxazepam (BZO) N 0 - 300 ng/ml 7-rntwhanefn-9,7-wcppbwta-6, 3-diphen ylpyrrolidine (EDDP) N 0 - 300 ng/ml Methamphetamine (MET) N 0 - 1000 ng/ml Methylenedioxymethamphetamine (MDMA) N 0 - 500 ng/ml Morphine (MOP 300/WPH3394) N 0 - 300 ng/ml Methadone (MTD) N 0 - 300 ng/ml Phencyclidine (PCP) N 0 - 25 ng/ml Nortriptyline (TCA) N 0 - 1000 ng/ml Oxycodone N 0 - 300 ng/ml x N 0 - 300 ng/ml UDT Reviewed date:08/28/2024 11:51:27 AM Interpretation: Performing Lab: Notes/Report: THC n 0 - 50 ng/ml Cocaine n 0 - 300 ng/ml Amphetamine n 0 - 1000 ng/ml Buprenorphine (BUP) n 0 - 10 ng/ml Secobarbital (Bar) n 0 - 300 ng/ml Oxazepam (BZO) n 0 - 300 ng/ml 7-hnfbhuppja-7,0-camglbfx-6, 3-diphen ylpyrrolidine (EDDP) n 0 - 300 ng/ml Methamphetamine (MET) n 0 - 1000 ng/ml Methylenedioxymethamphetamine (MDMA) n 0 - 500 ng/ml Morphine (MOP 300/WDK2746) n 0 - 300 ng/ml Methadone (MTD) n 0 - 300 ng/ml Phencyclidine (PCP) n 0 - 25 ng/ml Nortriptyline (TCA) n 0 - 1000 ng/ml Oxycodone n 0 - 300 ng/ml x n 0 - 300 ng/ml UDT Reviewed date:07/31/2024 09:26:20 AM Interpretation: Performing Lab: Notes/Report: THC n 0 - 50 ng/ml Cocaine n 0 - 300 ng/ml Amphetamine n 0 - 1000 ng/ml Buprenorphine (BUP) n 0 - 10 ng/ml Secobarbital (Bar) n 0 - 300 ng/ml Oxazepam (BZO) n 0 - 300 ng/ml 3-qkellwbmgo-6,3-ewsnurnc-1, 3-diphen ylpyrrolidine (EDDP) n 0 - 300 ng/ml Methamphetamine (MET) n 0 - 1000 ng/ml Methylenedioxymethamphetamine (MDMA) n 0 - 500 ng/ml Morphine (MOP 300/[id number]) n 0 - 300 ng/ml Methadone (MTD) n 0 - 300 ng/ml Phencyclidine (PCP) n 0 - 25 ng/ml Nortriptyline (TCA) n 0 - 1000 ng/ml Oxycodone n 0 - 300 ng/ml x n 0 - 300 ng/ml DRUG MONITOR,METHYLPHENID ME TAB, QN, URINE (58781) Reviewed date:12/04/2024 02:56:47 PM Interpretation: Performing Lab:[facility] Claro Grayson-Yousif [address] [facility], Yousif AlexanderWqxnSQ[address] Syed Gardner, Director - [id number] [facility] Notes/Report: FASTING: NO Ritalinic Acid >00765 <100 ng/mL Ritalinic Acid Comments See Ritalinic Acid Notes, LDT Notes Notes and Comments This drug testing is for medical treatment only. Analysis was performed as non-forensic testing and these results should be used only by healthcare providers to render diagnosis or treatment, or to monitor progress of medical conditions. Ritalinic Acid Notes: Ritalinic Acid detected is consistent with the use of the drug Methylphenidate. LDT Notes: Confirmation tests were developed and their analytical performance characteristics have been determined by [employer]. It has not been cleared or approved by the FDA. This assay has been validated pursuant to the CLIA regulations and is used for clinical purposes. Healthcare Providers needing Interpretation assistance, please contact us at [phone] ( ) M-F, 8am to 10pm EST Reason For Referral No Information Medications Medication SIG (Take, Route, Frequency, Duration) Notes Start Date End Date Status Montelukast Sodium 10 MG TAKE 1 TABLET BY MOUTH EVERY DAY DIRECTED Oral for 90 Days Active Omeprazole 40 MG TAKE 1 CAPSULE BY MOUTH EVERY DAY Oral for 90 Days Active Semaglutide(0.25 or 0.5MG/DOS) 2 MG/3ML as directed Subcutaneous Active Tadalafil 5 MG 1 tablet as needed Orally Once a day Active busPIRone HCl 10 MG 1 tablet Oral Twice a day Active Desvenlafaxine Succinate ER 100 MG 1 tablet Orally Once a day for 90 days Active Amphetamine-Dextroam phet ER 25 MG 1 capsule in the morning Orally Once a day increase dose, he is no longer on methylphenidate too 03/20/2025 Active Amphetamine-Dextroam phet ER 20 MG 1 capsule every morning Orally Once a day for 30 days Stopping Concerta 01/23/2025 Active Amphetamine-Dextroam phetamine 10 MG 1 tablet Oral daily in afternoon As needed 03/20/2025 Active Desvenlafaxine Succinate ER 100 mg TAKE 1 TABLET BY MOUTH DAILY Active Immunizations Vaccine Route Administration Date Status Comme nts Moderna Covid-19 Vaccine 1st dose Unknown 01/15/2021 Ad ministered Moderna Covid-19 Vaccine 1st dose Unknown 02/12/2021 Ad ministered Moderna Covid-19 Vaccine 1st dose Unknown 09/22/2021 Ad ministered Social History Tobacco Use: Social History Observation Description Date Details (start date - stop date) Former Smoker NA - NA Sex Assigned At : Social History Observation Description Sex Assigned At Male Household Question Answer Notes Marital status: Tobacco Control (Standard) Question Answer Notes Tobacco use: Former smoker AUDIT-C (Standard) Question Answer Notes Points 2 Did you have a drink contain ing alcohol in the past year? Yes How often did you have six o r more drinks on one occasion in the past year? Never (0 point) How many drinks did you have on a typical day when you were drinking in the past year? 1 or 2 drinks (0 point) How often did you have a dri nk containing alcohol in the past year? Monthly or less (1 point) Section Notes: Social History Substance Use Do you or have you ever smoked tobacco?: Former smoker How much tobacco do you smoke?: None When did you quit smoking?: 16+ years since last cigarette Do you or have you ever used e-cigarettes or vape?: Never used electronic cigarettes What was the date of your most recent tobacco screening?: 06/12/2024 Has tobacco cessation counseling been provided?: No What is your level of alcohol consumption?: Occasional How many years have you consumed alcohol?: 24 Do you use any illicit or recreational drugs?: Yes Which illicit or recreational drugs have you used?: Marijuana Have you used IV drugs?: No What is your level of caffeine consumption?: Heavy Education and Occupation What is the highest grade or level of school you have completed or the highest degree you have received?: Associate degree: academic program Are you currently employed?: Yes Who is your employer?: [employer] Marriage and Sexuality What is your relationship status?: Are you sexually active?: Yes Do you use protection during sex?: No How many children do you have?: 7 Home and Environment Are there any smokers in your house?: No Are there any guns present in your home?: No Advance Directive Do you have an advance directive?: No Do you have a medical power of employment attorney?: No Social History Substance Use Do you or have you ever smoked tobacco?: Former smoker How much tobacco do you smoke?: None When did you quit smoking?: 16+ years since last cigarette Do you or have you ever used e-cigarettes or vape?: Never used electronic cigarettes What was the date of your most recent tobacco screening?: 06/12/2024 Has tobacco cessation counseling been provided?: No What is your level of alcohol consumption?: Occasional How many years have you consumed alcohol?: 24 Do you use any illicit or recreational drugs?: Yes Which illicit or recreational drugs have you used?: Marijuana Have you used IV drugs?: No What is your level of caffeine consumption?: Heavy Education and Occupation What is the highest grade or level of school you have completed or the highest degree you have received?: Associate degree: academic program Are you currently employed?: Yes Who is your employer?: [employer] What is your relationship status?: Are you sexually active?: Yes Do you use protection during sex?: No How many children do you have?: 7 Home and Environment Are there any smokers in your house?: No Are there any guns present in your home?: No Advance Directive Do you have an advance directive?: No Do you have a medical power of employment attorney?: No Social History Substance Use Do you or have you ever smoked tobacco?: Former smoker How much tobacco do you smoke?: None When did you quit smoking?: 16+ years since last cigarette Do you or have you ever used e-cigarettes or vape?: Never used electronic cigarettes What was the date of your most recent tobacco screening?: 01/13/2024 Has tobacco cessation counseling been provided?: No What is your level of alcohol consumption?: Occasional How many years have you consumed alcohol?: 24 Do you use any illicit or recreational drugs?: Yes Which illicit or recreational drugs have you used?: Marijuana Have you used IV drugs?: No What is your level of caffeine consumption?: Heavy Education and Occupation What is the highest grade or level of school you have completed or the highest degree you have received?: Associate degree: academic program Are you currently employed?: Yes Who is your employer?: [employer] What is your relationship status?: Are you sexually active?: Yes Do you use protection during sex?: No How many children do you have?: 7 Home and Environment Are there any smokers in your house?: No Are there any guns present in your home?: No Advance Directive Do you have an advance directive?: No Do you have a medical power of employment attorney?: No Social History Substance Use Do you or have you ever smoked tobacco?: Former smoker How much tobacco do you smoke?: None When did you quit smoking?: 16+ years since last cigarette Do you or have you ever used e-cigarettes or vape?: Never used electronic cigarettes What was the date of your most recent tobacco screening?: 06/12/2024 Has tobacco cessation counseling been provided?: No What is your level of alcohol consumption?: Occasional How many years have you consumed alcohol?: 24 Do you use any illicit or recreational drugs?: Yes Which illicit or recreational drugs have you used?: Marijuana Have you used IV drugs?: No What is your level of caffeine consumption?: Heavy Education and Occupation What is the highest grade or level of school you have completed or the highest degree you have received?: Associate degree: academic program Are you currently employed?: Yes Who is your employer?: [employer] What is your relationship status?: Are you sexually active?: Yes Do you use protection during sex?: No How many children do you have?: 7 Home and Environment Are there any smokers in your house?: No Are there any guns present in your home?: No Advance Directive Do you have an advance directive?: No Do you have a medical power of employment attorney?: No Social History Substance Use Do you or have you ever smoked tobacco?: Former smoker How much tobacco do you smoke?: None When did you quit smoking?: 16+ years since last cigarette Do you or have you ever used e-cigarettes or vape?: Never used electronic cigarettes What was the date of your most recent tobacco screening?: 01/13/2024 Has tobacco cessation counseling been provided?: No What is your level of alcohol consumption?: Occasional How many years have you consumed alcohol?: 24 Do you use any illicit or recreational drugs?: Yes Which illicit or recreational drugs have you used?: Marijuana Have you used IV drugs?: No What is your level of caffeine consumption?: Heavy Education and Occupation What is the highest grade or level of school you have completed or the highest degree you have received?: Associate degree: academic program Are you currently employed?: Yes Who is your employer?: [employer] Marriage and Sexuality What is your relationship status?: Are you sexually active?: Yes Do you use protection during sex?: No How many children do you have?: 7 Home and Environment Are there any smokers in your house?: No Are there any guns present in your home?: No Advance Directive Do you have an advance directive?: No Do you have a medical power of employment attorney?: No Social History Substance Use Do you or have you ever smoked tobacco?: Former smoker How much tobacco do you smoke?: None When did you quit smoking?: 16+ years since last cigarette Do you or have you ever used e-cigarettes or vape?: Never used electronic cigarettes What was the date of your most recent tobacco screening?: 06/12/2024 Has tobacco cessation counseling been provided?: No What is your level of alcohol consumption?: Occasional How many years have you consumed alcohol?: 24 Do you use any illicit or recreational drugs?: Yes Which illicit or recreational drugs have you used?: Marijuana Have you used IV drugs?: No What is your level of caffeine consumption?: Heavy Education and Occupation What is the highest grade or level of school you have completed or the highest degree you have received?: Associate degree: academic program Are you currently employed?: Yes Who is your employer?: [employer] Marriage and Sexuality What is your relationship status?: Are you sexually active?: Yes Do you use protection during sex?: No How many children do you have?: 7 Home and Environment Are there any smokers in your house?: No Are there any guns present in your home?: No Advance Directive Do you have an advance directive?: No Do you have a medical power of employment attorney?: No Problems Problem Type SNOMED Code ICD Code Onset Dates Problem Status W/U Status Risk Notes Problem Mild recurrent major depression (12579453) Major depressive disorder, recurrent, mild (F33.0) 02/07/20 24 Active confirmed Problem Recurrent major depression in remission (57535519) Major depressive disorder, recurrent, in partial remission (F33.41) Active confirmed Problem Generalized anxiety disorder (45662306) Generalized anxiety disorder (F41.1) 02/07/20 24 Active confirmed Problem Obstructive sleep apnea of adult (4079096524072) Obstructive sleep apnea (adult) (pediatric) (G47.33) 01/13/20 24 Active confirmed Problem 52439436 ADHD (attention deficit hyperactivity disorder), combined type (F90.2) Active confirmed Problem Attention deficit hyperactivity disorder, combined type (72627634) Attention deficit hyperactivity disorder (ADHD), combined type (F90.2) Active confirmed Problem Elevated blood-pressure reading without diagnosis of hypertension (694466767) Elevated BP without diagnosis of hypertension (R03.0) Active confirmed Vital Signs Heart Rate 84 /min 03/28/2025 Height-cm 175.26 cm 03/28/2025 Blood pressure diastolic 76 mm Hg 03/28/2025 Weight-kg 94.35 kg 03/28/2025 Height 69.00 in 03/28/2025 Blood pressure systolic 115 mm Hg 03/28/2025 Weight 208 lbs 03/28/2025 BMI 30.71 kg/m2 03/28/2025 Procedures Procedure Date Ordered Date Performed Result Body Sit e ADHD Testing 04/13/2024 N/A Encounters Encounter Location Date Provider Diagnosis [facility] [employer] [place] [address] [facility] [address] [address] 06/05/2024 Jeri Capone [facility] [place] [id number] [facility] [address] [address] 04/13/2024 Jeri Capone ADHD, predominantly inattentive type F90.0 ; Major depressive disorder, recurrent, mild F33.0 ; Generalized anxiety disorder F41.1 and Obstructive sleep apnea (adult) (pediatric) G47.33 [facility] [address] [address] 04/20/2024 Lucio Leonardo ADHD (attention deficit hyperactivity disorder), combined type F90.2 [facility] [employer] [place] [address] [facility] [address] [address] 05/01/2024 Jeri Capone ADHD, predominantly inattentive type F90.0 ; Major depressive disorder, recurrent, mild F33.0 ; Generalized anxiety disorder F41.1 and Obstructive sleep apnea (adult) (pediatric) G47.33 [facility] [employer] [place] [address] [facility] [address] [address] 06/12/2024 Jeri Capone Major depressive disorder, recurrent, mild F33.0 ; ADHD (attention deficit hyperactivity disorder), combined type F90.2 ; Generalized anxiety disorder F41.1 and Obstructive sleep apnea (adult) (pediatric) G47.[address] [address] 07/31/2024 Jeri Capone Major depressive disorder, recurrent, mild F33.0 ; ADHD (attention deficit hyperactivity disorder), combined type F90.2 ; Generalized anxiety disorder F41.1 and Obstructive sleep apnea (adult) (pediatric) G47.[address] [address] 08/28/2024 Marlyn Pineda Hypertension, unspecified type 401.9 ; Attention deficit hyperactivity disorder (ADHD), combined type F90.2 ; Major depressive disorder, recurrent, mild F33.0 ; Generalized anxiety disorder F41.1 and Obstructive sleep apnea (adult) (pediatric) G47.33 [place] [address] [address] 10/18/2024 Marlyn Pineda ADHD (attention deficit hyperactivity disorder), combined type F90.2 ; Major depressive disorder, recurrent, mild F33.0 ; Generalized anxiety disorder F41.1 ; Obstructive sleep apnea (adult) (pediatric) G47.33 and Elevated BP without diagnosis of hypertension R03.[address] [address] 12/26/2024 Marlyn Pineda Generalized anxiety disorder F41.1 ; ADHD (attention deficit hyperactivity disorder), combined type F90.2 ; Major depressive disorder, recurrent, mild F33.0 ; Obstructive sleep apnea (adult) (pediatric) G47.33 and Encounter for screening for cardiovascular disorders Z13.[address] [address] 01/23/2025 Marlyn Pineda Attention deficit hyperactivity disorder (ADHD), combined type F90.2 ; Generalized anxiety disorder F41.1 ; Obstructive sleep apnea (adult) (pediatric) G47.33 ; Major depressive disorder, recurrent, mild F33.0 ; Encounter for screening for depression Z13.31 and Encounter for screening for cardiovascular disorders Z13.6 [facility] [address] [place] [address] 02/20/2025 Marlyn Pineda Major depressive disorder, recurrent, in partial remission F33.41 ; Generalized anxiety disorder F41.1 ; Obstructive sleep apnea (adult) (pediatric) G47.33 ; Encounter for screening for depression Z13.31 ; Attention deficit hyperactivity disorder (ADHD), combined type F90.2 and Encounter for screening for cardiovascular disorders Z13.6 [facility] [address] [place] [address] 03/28/2025 Marlyn Pineda Attention deficit hyperactivity disorder (ADHD), combined type F90.2 ; Major depressive disorder, recurrent, in partial remission F33.41 ; Generalized anxiety disorder F41.1 ; Encounter for screening for depression Z13.31 and Encounter for screening for cardiovascular disorders Z13.6 [facility] [address] [place] [address] 06/13/2024 Jeri Capone [facility], [facility] [address] [place] [address] 06/14/2024 Jeri Capone ADHD, predominantly inattentive type F90.0 [facility] [address] [place] [address] 07/31/2024 Jeri Capone [facility], [facility] [address] [place] [address] 07/31/2024 Jeri Capone [facility], [facility] [address] [place] [address] 08/16/2024 Marlyn Pineda [facility], [facility] [address] [place] [address] 09/03/2024 Marlyn Pineda Attention deficit hyperactivity disorder (ADHD), combined type F90.2 [facility], [facility] [address] [place] [address] 09/05/2024 Marlyn Pineda [facility], [facility] [address] [place] [address] 10/25/2024 Marlyn Pineda ADHD (attention deficit hyperactivity disorder), combined type F90.2 [facility], [facility] [address] [place] [address] 01/02/2025 Marlyn Pineda [facility], [facility] [address] [place] [address] 02/07/2025 Marlyn Chuopian ADHD (attention deficit hyperactivity disorder), combined type F90.2 [facility], [facility] [address] [place] [address] 08/13/2024 Jeri Capone [facility], [facility] [address] [place] [address] 08/16/2024 Jeri Caopne [facility], [facility] [address] [place] [address] 09/25/2024 Marlyn Chuopian [facility], [facility] [address] [place] [address] 10/30/2024 Marlyn Pineda ADHD (attention deficit hyperactivity disorder), combined type F90.2 [facility], [facility] [address] [place] [address] 10/30/2024 Marlyn Chuopian ADHD (attention deficit hyperactivity disorder), combined type F90.2 [facility], [facility] [address] [place] [address] 12/10/2024 Marlyn Chuopian [facility], [facility] [address] [place] [address] 12/10/2024 Marlyn Chuopian Attention deficit hyperactivity disorder (ADHD), combined type F90.2 and ADHD (attention deficit hyperactivity disorder), combined type F90.2 [facility], [facility] [address] [place] [address] 12/10/2024 Marlyn Chuopian ADHD (attention deficit hyperactivity disorder), combined type F90.2 [facility], [facility] [address] [place] [address] 12/14/2024 Marlyn Chuopian [facility], [facility] [address] [place] [address] 01/07/2025 Marlyn Chuopian ADHD (attention deficit hyperactivity disorder), combined type F90.2 [facility], [facility] [address] [place] [address] 03/19/2025 Marlynmerrill [facility] [address] [place] [address] 03/20/2025 Marlyn Miriam Attention deficit hyperactivity disorder (ADHD), combined type F90.2 Assessments Encounter Date Diagnosis (ICD Code) Assessment Notes Treatment Notes Treatment Clinical Notes Section Notes 04/13/2024 ADHD, predominantly inattentive type (ICD-10 - F90.0) help rule in/out with ANAND/PARISH testing f/u at least 1 wk after cont other meds for now stable, has ADHD and autism concerns has list of places for autism testing/eval; can refer, but he hasn't decided where he would like to go, let us know where to send re: ADHD, do ANAND/PARISH to help rule in/out; though anx/dep significant and can impact sx, but is stable and not wanting to change meds for that note already has armodafinil, NDRI, SNRI; so caution with NE (ie atomoxetine) and only 1 stim cannot see Leticia here as saw his spouse. has cancelled appts with Braulio, recommend therapy f/u at least 1 wk after testing pharmacy: wants change [facility] [place] 10/25/2024 ADHD (attention deficit hyperactivity disorder), combined type (ICD-10 - F90.2) Electronic Prior Authorization was requested for Methylphenidate HCl ER (OSM) 54 MG Tablet Extended Release. Provider can order medication once approval received. 10/30/2024 ADHD (attention deficit hyperactivity disorder), combined type (ICD-10 - F90.2) 10/30/2024 ADHD (attention deficit hyperactivity disorder), combined type (ICD-10 - F90.2) 12/10/2024 ADHD (attention deficit hyperactivity disorder), combined type (ICD-10 - F90.2) 10/18/2024 ADHD (attention deficit hyperactivity disorder), combined type (ICD-10 - F90.2) Reports mood and anxiety has been overall stable, mild and manageble Reports sleep concerns and day time fatigue, feels sleep apnea related versus mental health. Compliant with CPAP BP noted to be elevated today, talked about stimulant can increase BP, does not monitor at home. Says his BP normal fine Plan: - continue buspirone 15 mg TID - continue pristiq 100 mg daily - increase concerta to 45 mg daily, if not beneficial, discussed options for changing next visit - follow up with PCP for blood pressure, sleep apnea concerns, and fatigue for further workup if appropriate, may obtain labs based off their assesement if issues persist and they did not pursue follow up 2 months, sooner if concerns arise 12/26/2024 Generalized anxiety disorder (ICD-10 - F41.1) ADHD - Currently on Concerta 54 mg - Some improvement in focus, still experiences distractibilit y - Patient interested in potentially increasing dose Plan: - Continue Concerta 54 mg for another month (just had refilled) - Follow up in one month to evaluate effectiveness and discuss alternatives Anxiety - On buspirone 15 mg 3 times a day, interested in reducing dosage - On Pristiq 100 mg, no concerns with current dosage - No significant concerns with anxiety Plan: - Decrease buspirone to 15 mg twice a day - Continue Pristiq 100 mg daily - Monitor for changes in anxiety levels Depression - Stable mood Plan: - Continue Pristiq 100 mg daily - Monitor for changes in mood Sleep - No significant concerns reported Plan: - Continue to monitor sleep quality - Continue CPAP compliance Follow up in one month to reassess ADHD medication, monitor progress on other medications, and address any concerns 12/26/2024 ADHD (attention deficit hyperactivity disorder), combined type (ICD-10 - F90.2) ADHD - Currently on Concerta 54 mg - Some improvement in focus, still experiences distractibilit y - Patient interested in potentially increasing dose Plan: - Continue Concerta 54 mg for another month (just had refilled) - Follow up in one month to evaluate effectiveness and discuss alternatives Anxiety - On buspirone 15 mg 3 times a day, interested in reducing dosage - On Pristiq 100 mg, no concerns with current dosage - No significant concerns with anxiety Plan: - Decrease buspirone to 15 mg twice a day - Continue Pristiq 100 mg daily - Monitor for changes in anxiety levels Depression - Stable mood Plan: - Continue Pristiq 100 mg daily - Monitor for changes in mood Sleep - No significant concerns reported Plan: - Continue to monitor sleep quality - Continue CPAP compliance Follow up in one month to reassess ADHD medication, monitor progress on other medications, and address any concerns 01/23/2025 Generalized anxiety disorder (ICD-10 - F41.1) 01/23/2025 Attention deficit hyperactivity disorder (ADHD), combined type (ICD-10 - F90.2) Electronic Prior Authorization was requested for Amphetamine-Dext roamphet ER 20 MG Capsule Extended Release 24 Hour. Provider can order medication once approval received. 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 consider impact mood, anxiety, SABINE is tx note already has armodafinil, NDRI, SNRI; so caution with NE (ie atomoxetine) and only 1 stim consider increase NDRI, or SNRI-though not confident that will significantly help adhd might improve focus some and/or mood anxiety which can also help, or change armodafinil to other stimulant, or take away SNRI and try NRI. 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 Continue to monitor at home. Avoid excessive caffeine 09/03/2024 Attention deficit hyperactivity disorder (ADHD), combined type (ICD-10 - F90.2) 10/18/2024 Major depressive disorder, recurrent, 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) 90 days supply sent last month, no refill needed at this time Reports mood and anxiety has been overall stable, mild and manageble Reports sleep concerns and day time fatigue, feels sleep apnea related versus mental health. Compliant with CPAP BP noted to be elevated today, talked about stimulant can increase BP, does not monitor at home. Says his BP normal fine Plan: - continue buspirone 15 mg TID - continue pristiq 100 mg daily - increase concerta to 45 mg daily, if not beneficial, discussed options for changing next visit - follow up with PCP for blood pressure, sleep apnea concerns, and fatigue for further workup if appropriate, may obtain labs based off their assesement if issues persist and they did not pursue follow up 2 months, sooner if concerns arise 04/13/2024 Major depressive disorder, recurrent, 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) cont pristiq 25mg dailycont bupropion XL 300mg qam recommend therapy 06/12/2024 ADHD (attention deficit hyperactivity disorder), combined type (ICD-10 - F90.2) taper bupropion as below start atomoxetine 25mg qam x1 wk, then 50mg qam 1 wk, then 60mg qam Electronic Prior Authorization was requested for Atomoxetine HCl 25 MG Capsule. ADHD testing supports hyperactive or combined dx, see HPI. consider impact mood, anxiety, SABINE is tx pristiq increase helpful for mood, anxiety, no change focus/productivi ty. Discuss options. Caution add another NE, and already on armodafinil-coul d try change. 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 Compliant with CPAP BP noted to be elevated today, talked about stimulant can increase BP, does not monitor at home. Says his BP normal fine Plan: - continue buspirone 15 mg TID - continue pristiq 100 mg daily - increase concerta to 45 mg daily, if not beneficial, discussed options for changing next visit - follow up with PCP for blood pressure, sleep apnea concerns, and fatigue for further workup if appropriate, may obtain labs based off their assesement if issues persist and they did not pursue follow up 2 months, sooner if concerns arise 07/31/2024 ADHD (attention deficit hyperactivity disorder), combined type (ICD-10 - F90.2) did not tolerate atomoxetine start concerta 27mg qam -stop armodafinil-do not take both! -minimize caffeine with stimulant -monitor BP at home, if elevated do not take stimulant and notify office UDS neg did not tolerate atomoxetine, urinary side effects. Would like to try change from armodafinil to other stimulant to cover ADHD, daytime fatigue r/t SABINE. asks Lilibeth-worked well for kids, and thinks take at night may help; first insurance generally wants try a generic, shared decision to start concerta. review r/b/se, do not combine with high caffeine. monitor BP at home, has cuff, discuss parameters. 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 Provider can order medication once approval received. 12/10/2024 ADHD (attention deficit hyperactivity disorder), combined type (ICD-10 - F90.2) 02/20/2025 Generalized anxiety disorder (ICD-10 - F41.1) 01/23/2025 Obstructive sleep apnea (adult) (pediatric) (ICD-10 - G47.33) 12/26/2024 Major depressive disorder, recurrent, 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) ADHD - Currently on Concerta 54 mg - Some improvement in focus, still experiences distractibilit y - Patient interested in potentially increasing dose Plan: - Continue Concerta 54 mg for another month (just had refilled) - Follow up in one month to evaluate effectiveness and discuss alternatives Anxiety - On buspirone 15 mg 3 times a day, interested in reducing dosage - On Pristiq 100 mg, no concerns with current dosage - No significant concerns with anxiety Plan: - Decrease buspirone to 15 mg twice a day - Continue Pristiq 100 mg daily - Monitor for changes in anxiety levels Depression - Stable mood Plan: - Continue Pristiq 100 mg daily - Monitor for changes in mood Sleep - No significant concerns reported Plan: - Continue to monitor sleep quality - Continue CPAP compliance Follow up in one month to reassess ADHD medication, monitor progress on other medications, and address any concerns 12/26/2024 Obstructive sleep apnea (adult) (pediatric) (ICD-10 - G47.33) ADHD - Currently on Concerta 54 mg - Some improvement in focus, still experiences distractibilit y - Patient interested in potentially increasing dose Plan: - Continue Concerta 54 mg for another month (just had refilled) - Follow up in one month to evaluate effectiveness and discuss alternatives Anxiety - On buspirone 15 mg 3 times a day, interested in reducing dosage - On Pristiq 100 mg, no concerns with current dosage - No significant concerns with anxiety Plan: - Decrease buspirone to 15 mg twice a day - Continue Pristiq 100 mg daily - Monitor for changes in anxiety levels Depression - Stable mood Plan: - Continue Pristiq 100 mg daily - Monitor for changes in mood Sleep - No significant concerns reported Plan: - Continue to monitor sleep quality - Continue CPAP compliance Follow up in one month to reassess ADHD medication, monitor progress on other medications, and address any concerns 01/23/2025 Major depressive disorder, recurrent, 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) 02/20/2025 Obstructive sleep apnea (adult) (pediatric) (ICD-10 - G47.33) 06/12/2024 Obstructive sleep apnea (adult) (pediatric) (ICD-10 - G47.33) daytime sleepiness/fatig ue cont armodafinil 250mg qam 03/28/2025 Encounter for screening for depression (ICD-10 - Z13.31) 05/01/2024 Generalized anxiety disorder (ICD-10 - F41.1) cont buspar 15mg TID decrease caffeine recommend therapy 07/31/2024 Generalized anxiety disorder (ICD-10 - F41.1) cont buspar 15mg TID-does not need filled SNRI decrease caffeine recommend therapy 08/28/2024 Generalized anxiety disorder (ICD-10 - F41.1) continue medications as prescribed 10/18/2024 Obstructive sleep apnea (adult) (pediatric) (ICD-10 - G47.33) Reports mood and anxiety has been overall stable, mild and manageble Reports sleep concerns and day time fatigue, feels sleep apnea related versus mental health. Compliant with CPAP BP noted to be elevated today, talked about stimulant can increase BP, does not monitor at home. Says his BP normal fine Plan: - continue buspirone 15 mg TID - continue pristiq 100 mg daily - increase concerta to 45 mg daily, if not beneficial, discussed options for changing next visit - follow up with PCP for blood pressure, sleep apnea concerns, and fatigue for further workup if appropriate, may obtain labs based off their assesement if issues persist and they did not pursue follow up 2 months, sooner if concerns arise 04/13/2024 Obstructive sleep apnea (adult) (pediatric) (ICD-10 - G47.33) daytime sleepiness/fatig ue cont armodafinil 250mg daily (should have 2 refills) PDMR last filed 02/16/24 08/28/2024 Obstructive sleep apnea (adult) (pediatric) (ICD-10 - G47.33) continue treatment as indicated by your PCP. 07/31/2024 Obstructive sleep apnea (adult) (pediatric) (ICD-10 - G47.33) daytime sleepiness/fatig ue stop armodafinil 250mg qam 05/01/2024 Obstructive sleep apnea (adult) (pediatric) (ICD-10 - G47.33) daytime sleepiness/fatig ue cont armodafinil 250mg daily (should have refill) PDMR shows last filed 02/16/24-with 2 refills 03/28/2025 Encounter for screening for cardiovascular disorders (ICD-10 - Z13.6) 01/23/2025 Encounter for screening for depression (ICD-10 - Z13.31) 02/20/2025 Encounter for screening for depression (ICD-10 - Z13.31) 02/20/2025 Attention deficit hyperactivity disorder (ADHD), combined type (ICD-10 - F90.2) Electronic Prior Authorization was requested for Amphetamine-Dext roamphetamine 10 MG Tablet. Provider can order medication once approval received. 10/18/2024 Elevated BP without diagnosis of hypertension (ICD-10 - R03.0) Reports mood and anxiety has been overall stable, mild and manageble Reports sleep concerns and day time fatigue, feels sleep apnea related versus mental health. Compliant with CPAP BP noted to be elevated today, talked about stimulant can increase BP, does not monitor at home. Says his BP normal fine Plan: - continue buspirone 15 mg TID - continue pristiq 100 mg daily - increase concerta to 45 mg daily, if not beneficial, discussed options for changing next visit - follow up with PCP for blood pressure, sleep apnea concerns, and fatigue for further workup if appropriate, may obtain labs based off their assesement if issues persist and they did not pursue follow up 2 months, sooner if concerns arise 12/26/2024 Encounter for screening for cardiovascular disorders (ICD-10 - Z13.6) ADHD - Currently on Concerta 54 mg - Some improvement in focus, still experiences distractibilit y - Patient interested in potentially increasing dose Plan: - Continue Concerta 54 mg for another month (just had refilled) - Follow up in one month to evaluate effectiveness and discuss alternatives Anxiety - On buspirone 15 mg 3 times a day, interested in reducing dosage - On Pristiq 100 mg, no concerns with current dosage - No significant concerns with anxiety Plan: - Decrease buspirone to 15 mg twice a day - Continue Pristiq 100 mg daily - Monitor for changes in anxiety levels Depression - Stable mood Plan: - Continue Pristiq 100 mg daily - Monitor for changes in mood Sleep - No significant concerns reported Plan: - Continue to monitor sleep quality - Continue CPAP compliance Follow up in one month to reassess ADHD medication, monitor progress on other medications, and address any concerns 02/20/2025 Encounter for screening for cardiovascular disorders (ICD-10 - Z13.6) 01/23/2025 Encounter for screening for cardiovascular disorders (ICD-10 - Z13.6) 04/13/2024 Other 01/23/2025 Other Nimco Jones, an adult patient with ADHD, presents with concerns about the efficacy of his current Concerta medication and requests an increase in dosage or alternative treatment options. Attention Deficit Hyperactivity Disorder (ADHD) Assessment: Patient is currently on Concerta 54 mg, which is the maximum dose for this medication. He reports needing something different or better, indicating suboptimal symptom control. Patient describes a hectic schedule, including work (7 AM to 3 or 4 PM) and college classes (two per semester for almost three years). He notes particular difficulty with focus and productivity in the afternoons, experiencing sleepiness and restlessness, often resorting to caffeine use. Previously, the patient was on armodafinil for sleepiness before being diagnosed with ADHD. Given the patient's response to the maximum dose of Concerta and his described symptoms, a change in medication regimen is warranted. Plan: - Discontinue Concerta 54 mg - Start Adderall Extended Release 20 mg PO daily in the morning - Submit prior authorization to insurance for Adderall XR - Informed consent: Discussed potential side effects including appetite suppression, increased heart rate, blood pressure, and anxiety - Follow up in 4 weeks to assess efficacy and tolerability of new medication - Consider adding immediate release booster dose in the afternoon if needed at next visit Depression and Anxiety Assessment: Reports stablemood. No significant concerns with anxiety Plan: - Continue buspirone 15 mg twice a day - Continue Pristiq 100 mg daily - Monitor for changes in mood or anxiety levels Obesity Assessment: Patient reports weight loss of 6 pounds since last visit and 10-13 pounds total in the last couple of months. This weight loss coincides with the initiation of compounded semaglutide one month ago, suggesting a positive response to the medication. Plan: - Continue compounded semaglutide (dose not specified) - Monitor weight and appetite at follow-up visits Sleep Apnea Assessment: Patient reports okay sleep and mentions getting a new CPAP machine, indicating ongoing management of previously diagnosed sleep apnea. Plan: - Continue CPAP therapy with new machine - Follow up on sleep quality and CPAP adherence at next visit 02/20/2025 Other Nimco Aren presents for follow-up of ADHD and anxiety management, reporting medication efficacy concerns and side effects. Attention Deficit Hyperactivity Disorder (ADHD) Assessment: Patient reports current medication (presumed Adderall XR) is okay but notices efficacy declining in the afternoon. Compared to previous treatment with Concerta, patient feels the current regimen is about the same. Patient notes increased distractibility during evening homework sessions. These symptoms suggest suboptimal ADHD symptom control, particularly in the latter part of the day. Plan: - Increase Adderall XR to 25 mg PO daily in the morning - Add Adderall IR 10 mg PO daily in the afternoon as needed - Follow up in 4 weeks Anxiety Disorder Assessment: Patient reports anxiety as fine with nothing crazier than normal. Current medications include Pristiq (desvenlafaxine) and BuSpar (buspirone). Patient indicates satisfaction with current BuSpar dosage. Plan: - Continue current Pristiq regimen - Continue current BuSpar regimen 03/28/2025 Other Nimco Jones, a student with ADHD, presents for medication management and reports overall stability on current regimen. Attention Deficit Hyperactivity Disorder (ADHD) Assessment: Patient reports current medication regimen is okay right now. He is taking Adderall (extended-releas e formulation) and has been prescribed an afternoon ADHD medication, which he often forgets to take. Patient notes that the extended-release formulation does not last as long as desired, leading to difficulties with focus during late-night studying. Previously, Concerta was tried at various doses up to the maximum, but did not provide adequate symptom control. The current regimen appears to be providing some benefit, but there are still areas for potential optimization. Plan: - Continue current ADHD medication regimen - Adderall (extended-releas e) - Afternoon ADHD medication - Reassess medication efficacy and adherence at next follow-up - Follow up in 3 months to evaluate medication effectiveness before the start of the new semester Anxiety Assessment: Patient reports anxiety has been okay without further elaboration. Mood Assessment: Patient denies feeling more down or depressed than usual. No current suicidal ideation reported. Sleep Assessment: Patient describes sleep as okay, I guess without further elaboration. Appetite Assessment: Patient reports appetite has remained stable while taking Adderall. Plan Of Treatment Pending Test Test Name Order Date ADHD Testing 04/13/2024 Next Appt Details Provider Name:Marlyn Tosha spring, 06/27/2025 08:30:00 AM, [facility] [address], [place], [address], Insurance Providers Payer Name Payer Address Payer Phone Subscriber Number Group Number Insured Name Patient Relationship to Insured Coverage Start Date Coverage End Date [facility] [address] [place] [address] [id number] NIMCO VALADEZ [place] Self - patient is the insured Medicaid-[place] l Medicaid [address] [address] [place] [address] [id number] NIMCO VALADEZ [place] Self - patient is the insured Medical (General) History Medical History History ICD Code Problems: Generalized anxiety disorder Mild recurrent major depression Obstructive sleep apnea of adult Severe recurrent major depression withou t psychotic features Surgical History Surgery Date(Month/Year) laminectomy 12/2020 septoplasty and turbine reduction 4
--- OUTSIDE RECORDS SUMMARY | 2025-04-10 07:33 | XMS_ITS | Patient Health Record ---
Author Organization [facility] Address [address] [place] [address] Care Team Providers Care Assembler Bonding Name Role Phone Stephanie Rafaela Primary Care Provider Allergies No Known Allergies Reason For Referral No Information Medications Medication SIG (Take, Route, Frequency, Duration) Notes Start Date End Date Status Omeprazole 40 MG 1 capsule 30 minutes before morning meal Orally Once a day for 30 days Active Dulera 100-5 MCG/ACT 2 puffs Inhalation Twice a day for 30 days Active Ventolin HFA 90 MCG/ACT 1 puff as needed Inhalation every 4 hrs for 30 days Active Montelukast Sodium 10 mg TAKE 1 TABLET B Y MOUTH DAILY for 30 Active Vyvanse 30 MG 1 capsule in the mor audi Orally Once a day for 30 days 10/01/2021 Active busPIRone HCl 15 MG TAKE 1 TABLET BY DENITA TH THREE TIMES DAILY Orally three times daily for 30 days Active Vyvanse 30 MG 1 capsule in the mor audi Orally Once a day for 30 days 10/27/2021 Active Albuterol Sulfate HFA 108 (90 Base) MCG/ACT INHALE 1 PUFF BY MOUTH EVERY 4 HOURS NEEDED for 60 Active Vyvanse 30 MG 1 capsule in the mor audi Orally Once a day for 30 days 11/24/2021 Active Fenofibrate 160 MG TAKE 1 TABLET BY DENITA TH EVERY DAY for 30 Active buPROPion HCl ER (XL) 300 MG 1 tablet in the morning Orally Once a day for 30 days Active Immunizations Vaccine Route Administration Date Status Comme nts COVID-19 Moderna 1ST IM Intramuscular 01/15/2021 Administered EUA date 0. Screening reviewed and consent signed. Patient tolerated well. COVID-19 Moderna 2nd IM Intramuscular 02/12/2021 Administered FLU VAC NO PRSV 4VAL 6 mo+ IM Intramuscular 08/08/2020 Administered Consent signed. Pt juan manuel well. Denies questions or concerns. VIS date 06/07/19 Social History Tobacco Use: Social History Observation Description Date Details (start date - stop date) Former Smoker NA - NA Sex Assigned At : Social History Observation Description Sex Assigned At Male Dont use, Tobacco Use/Smoking Question Answer Notes Are you a former smoker Alcohol Screen (Audit-C) Question Answer Notes Did you have a drink containing alcohol in the p ast year? Yes Section Notes: SOCIAL HISTORY- Smoking history--- Quit smoking about 13 years ago Drug/alcohol use Substance Alcohol February 2019 Marijuana denies cocaine denies Heroin denies Meth denies LSD/PCP denies IV drugs denies OTC/Rx drugs omeprazole location- [place], [place] Current home location- [place] Who lives at home? , 5 kids, 2 grandkids occasionally Siblings? Children? 1 sister, 5 kids, 2 grandkids occasionally Relationships? Good (2-3 words) Describe childhood- Good, above average. 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 , 5 kids, 2 grandkids occasionally Siblings? Children? 1 sister, 5 kids, 2 grandkids occasionally Relationships? Good (2-3 words) Describe childhood- Good, above average. 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 , 5 kids, 2 grandkids occasionally Siblings? Children? 1 sister, 5 kids, 2 grandkids occasionally Relationships? Good (2-3 words) Describe childhood- Good, above average. 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 , 5 kids, 2 grandkids occasionally Siblings? Children? 1 sister, 5 kids, 2 grandkids occasionally Relationships? Good (2-3 words) Describe childhood- Good, above average. 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/Interests- Photography, road [employer], movies, family Social Activities-- Most of socialization is at [employer] Spiritual Affiliation- Yes Probation/Legal trouble/?- No legal issues, no Problems Problem Type SNOMED Code ICD Code Onset Dates Problem Status W/U Status Risk Notes Problem Vaccination given (311071029) Encounter for immunization (Z23) Active confirmed Problem Anxiety (12313937) Anxiety (F41.9) Active confirmed Problem 903052662 Dyslipidemia (E78.5) 03/11/20 Active confirmed Problem Mild recurrent major depression (65651957) Depression, major, recurrent, mild (F33.0) Active confirmed Problem 328496645 Mild intermitten t asthma without complication (J45.20) Active confirmed Problem Recurrent major depression (16627977) Recurrent major depressive disorder, remission status unspecified (F33.9) 03/11/20 20 Active confirmed Problem 121777383 Gastroesophageal reflux disease without esophagitis (K21.9) Active confirmed Plan Of Treatment Future Test Test Name Order Date 12 Panel Urine Drug Screen 10/01/2021 Insurance Providers Payer Name Payer Address Payer Phone Subscriber Number Group Number Insured Name Patient Relationship to Insured Coverage Start Date Coverage End Date [facility] [address] [place] [address] [id number] Mukul Mauro nd Self - patient is the insured [facility] [address] [place] [phone] [id number] Mukul Mauro nd Self - patient is the insured 0 [employer] [facility] Attn Claims Department [address] [place] [phone] [id number] [place] Mukul Self - patient is the insured 1 [employer] Attn Claims Department [address] [address] [id number] [place] Mukul Self - patient is the insured 1 Medical (General) History Medical History History ICD Code Recurrent major depressive disorder, rem ission status unspecified Moderate persistent asthma without compl ication Dyslipidemia Seasonal Allergies Gastroesophageal reflux disease without esophagitis K21.9 high cholesterol Surgical History Surgery Date(Month/Year) back surgery 12/23/20
--- OUTSIDE RECORDS SUMMARY | 2025-04-10 07:34 | XMS_ITS | Data Portability ---
Author Organization [facility] [employer], Main Office Address [address] [place] [address] Care Team Providers Care Vtc Technician Name Role Phone SUMMER NICOLE Primary Care Provider SUMMER NICOLE Referring Provider MARQUEZ SALAMANCA Channeler Insole Unavailable STEVENSON TINSLEY Primary Care Provider [phone] STEVENSON TINSLEY Referring Provider Assessment No assessment recorded. Plan of Treatment Reminders Order Date Submit Date Provider Last Modified By Organization Details Last Modified Time Details Appointments None recorded. Lab None recorded. Referral None recorded. Procedures None recorded. Surgeries None recorded. Imaging None recorded. Medication Orders fluticasone propionate 50 mcg/actuati on nasal spray,suspe nsion [address] [facility]/Pharmacy #[id number], [address] [place], [address], 13:00:46 montelukast 10 mg tablet [address] [facility]/Pharmacy #3259, [address] [place], [address], 13:00:45 Dulera 200 mcg-5 mcg/actuati on HFA aerosol inhaler [address] [facility]/Pharmacy #3259, [address] [place], [address], 13:00:46 albuterol sulfate HFA 90 mcg/actuati on aerosol inhaler 2022 [address]23 [facility]/Pharmacy #3259, [address] [place], [address], 3 13:00:44 fluticasone propionate 50 mcg/actuati on nasal spray,suspe nsion [address]/Pharmacy #3259, [address] [place], [address], 3 11:11:19 montelukast 10 mg tablet [address]/Pharmacy #3259, [address] [place], [address], 3 11:11:19 Patient TargetsNo targets recorded. Patient Instructions Encounter Date Encounter Id Patient Instructions Last Modified By Organization Details Last Modified Time 05/18/2023 [id number] complete PFT w/ post bronchodilator spirometry* - No Auth required COREY Not available 06/07/2023 16:04:11 Reason for Referral None Reported. Results Created Date Observation Date Name Description Value Unit Range Abnormal Flag Note LastModifiedBy Organization Detail LastModifiedTime 03/10/20 21 01/26/2019 polys omnog elan No observ ation record ed. [id number] Not Available 12/22/2022 01:01:30 06/07/20 23 06/03/2023 compl ete PFT w/ post [facility] hodil ator mike metry * No observ ation record ed. [email or web address] [facility] [address], [place], [address], 06/16/2023 20:10:22 Result Notes None recorded. Problems Name Problem SNOMED Code Status Onset Date Resolution Date Notes Provider Name and Address Organization Details Recorded Time Blood glucose outside reference range 646512182 Active Not Available [facility] 3 00:53:30 Asthma 631371834 Active 2018 Not Available [facility] 3 00:53:30 Pure hypercholeste rolemia 164075345 Active Not Available [facility] 3 00:53:30 Depressive disorder 75184530 Active Not Available [facility] 3 00:53:30 Adult attention deficit hyperactivity disorder 969814650 Active Not Available [facility] 3 00:53:30 Sleep apnea 83448016 Active Not Available [facility] 3 00:53:30 Obstructive sleep apnea syndrome 12692594 Active 2018 Not Available [facility] 3 00:53:30 Allergic rhinitis 32343517 Active 2022 Rossy Foster, [facility] [address], [place], [address] , [employer] 3 10:19:14 Fatigue 74202569 Active 2022 Rossy Foster [facility] [address], [place], [address] , [employer] 3 11:14:37 Problem Notes None recorded. Procedures Surgical History Date Name Laterality Status Provider Name and Address Organization Details Recorded Time 1 Back Surgery completed Not Available [facility] 023 00:47:35 Imaging Results None recorded. Procedure Notes None recorded. Medical Equipment None Reported. Allergies No known drug allergies Medications Name Sig Start Date Stop Date Status Note LastModified by Organization Details LastModified Time quetiapine 25 mg tablet 02/13 completed Not Available Not Available Not Available cyclobenzap rine 10 mg tablet TAKE ONE TABLET DAILY NEEDED active Not Available Not Available No t Available fenofibrate micronized 160 mg tablet take one tablet daily 08/18 completed Not Available Not Available Not Available atorvastati n 40 mg tablet TAKE 1 TABLET BY MOUTH EVERY DAY AT BEDTIME *PLEASE GET LABS DONE FOR FURTHER REFILLS active Not Available Not Available No t Available buspirone 5 mg tablet 02/13 completed Not Available Not Available Not Available prednisone 10 mg tablet 02/13 completed Not Available Not Available Not Available atorvastati n 20 mg tablet TAKE 1 TABLET BY MOUTH EVERY DAY 08/19 completed Not Available Not Available Not Available ipratropium 0.5 mg-albutero l 3 mg (2.5 mg base)/3 mL nebulizatio n soln 2 inhalatio ns via nebulizer every 6 hours as needed, if if short of breath after one treatment MUST go to the ER 08/20 completed Not Available Not Available Not Available tizanidine 2 mg tablet TAKE 1 TABLET BY MOUTH EVERY 8 HOURS 03/05 completed Not Available Not Available Not Available albuterol sulfate 2.5 mg/3 mL (0.083 %) solution for nebulizatio n U 3 ML VIA NEB QID UTD active Not Available Not Available No t Available atorvastati n 10 mg tablet TAKE 1 TABLET BY MOUTH ONCE DAILY 04/20 completed Not Available Not Available Not Available azithromyci n 250 mg tablet TAKE 2 TABLETS (500 MG) BY ORAL ROUTE ONCE DAILY FOR 1 DAY THEN 1 TABLET (250 MG) BY ORAL ROUTE ONCE DAILY FOR 4 DAYS 02/13 completed Not Available Not Available Not Available nystatin 100,000 unit/gram topical ointment LOUIS EXT AA BID 08/20 completed Not Available Not Available Not Available prednisone 20 mg tablet 01/05 completed Not Available Not Available Not Available Tubersol 5 tub. unit/0.1 mL intradermal injection solution 04/19 completed Not Available Not Available Not Available clonazepam 0.5 mg tablet 02/13 completed Not Available Not Available Not Available sertraline 100 mg tablet TK 1 T PO D 11/30 completed Not Available Not Available Not Available omeprazole 40 mg capsule,del ayed release TAKE 1 CAPSULE BY MOUTH DAILY 08/19 completed Not Available Not Available Not Available tramadol 50 mg tablet TAKE 1 TABLET BY MOUTH TWICE DAILY NEEDED active Not Available Not Available No t Available meloxicam 7.5 mg tablet TAKE ONE TABLET TWICE DAILY WITH FOOD OR MILK 07/16 completed Not Available Not Available Not Available hydrocortis one 2.5 % topical cream with perineal applicator APPLY RECTALLY TO THE AFFECTED AREA DAILY NEEDED FOR HEMORRHOI DS 08/19 completed Not Available Not Available Not Available amoxicillin 875 mg tablet 04/19 completed Not Available Not Available Not Available alprazolam 0.25 mg tablet 04/19 completed Not Available Not Available Not Available modafinil 200 mg tablet TAKE 1 TABLET BY MOUTH ONCE DAILY IN THE MORNING active Not Available Not Available No t Available DOK 100 mg capsule TAKE 1 CAPSULE BY MOUTH TWICE DAILY 03/05 completed Not Available Not Available Not Available Cipro 500 mg tablet Take 1 tablet twice a day by oral route for 7 days. 04/03 completed Not Available Not Available Not Available nystatin 100,000 unit/gram topical cream APPLY TOPICALLY TWICE DAILY NEEDED FOR JOCK ITCH 08/19 completed Not Available Not Available Not Available buspirone 10 mg tablet 08/20 completed Not Available Not Available Not Available fluorometho lone 0.1 % eye drops,suspe nsion INSTILL 1 DROP BOTH EYES TWICE DAILY FOR 4 WEEKS 08/19 completed Not Available Not Available Not Available bupropion HCl 75 mg tablet TK 1 T PO DAILY active Not Available Not Available No t Available indomethaci n 50 mg capsule 04/19 completed Not Available Not Available Not Available Adderall XR 10 mg capsule,ext ended release 02/13 completed Not Available Not Available Not Available hydrocortis one 2.5 % topical cream 11/30 completed Not Available Not Available Not Available montelukast 10 mg tablet TAKE 1 TABLET BY MOUTH EVERY DAY DIRECTED 2022 active Not Available Not Available Not Avai lable mupirocin 2 % topical ointment APPLY TOPICALLY 3 TIMES A DAY active Not Available Not Available No t Available zolpidem 10 mg tablet 04/19 completed Not Available Not Available Not Available methylpredn isolone 4 mg tablets in a dose pack take as directed 12/27 completed Not Available Not Available Not Available albuterol sulfate HFA 90 mcg/actuati on aerosol inhaler INHALE 2 PUFFS EVERY 4 TO 6 HOURS NEEDED FOR SHORTNESS OF BREATH, WHEEZING OR COUGH active Not Available Not Available No t Available hydrocortis one 2.5 % topical ointment LOUIS AA TID 08/20 completed Not Available Not Available Not Available ketoconazol e 2 % topical cream APPLY TO THE AFFECTED AREA(S) BY TOPICAL ROUTE ONCE DAILY 08/20 completed Not Available Not Available Not Available fluticasone propionate 50 mcg/actuati on nasal spray,suspe nsion SPRAY 2 SPRAYS INTO EACH NOSTRIL EVERY DAY active Not Available Not Available No t Available doxycycline hyclate 100 mg tablet TAKE 1 TABLET BY MOUTH TWICE A DAY FOR 7 DAYS active Not Available Not Available No t Available naproxen 500 mg tablet 04/19 completed Not Available Not Available Not Available buspirone 15 mg tablet TAKE 1 TABLET BY MOUTH THREE TIMES DAILY 08/19 completed Not Available Not Available Not Available oxycodone 5 mg tablet TAKE 1 TABLET BY MOUTH EVERY 4 HOURS NEEDED FOR PAIN 03/05 completed Not Available Not Available Not Available cyclobenzap rine 5 mg tablet TK 1 T PO BID PRN 04/17 completed Not Available Not Available Not Available rosuvastati n 40 mg tablet 02/13 completed Not Available Not Available Not Available bupropion HCl XL 300 mg 24 hr tablet, extended release TAKE 1 TABLET BY MOUTH EVERY DAY IN THE MORNING 08/19 completed Not Available Not Available Not Available bupropion HCl XL 150 mg 24 hr tablet, extended release TAKE 1 TABLET BY MOUTH EVERY MORNING 08/19 completed Not Available Not Available Not Available escitalopra m 5 mg tablet TK 1 T PO QAM 01/05 completed Not Available Not Available Not Available duloxetine 30 mg capsule,del ayed release TAKE 1 CAPSULE BY MOUTH EVERY NIGHT AT BEDTIME FOR 7 DAYS 08/19 completed Not Available Not Available Not Available duloxetine 60 mg capsule,del ayed release TAKE 1 CAPSULE BY MOUTH EVERY NIGHT AT BEDTIME 08/19 completed Not Available Not Available Not Available fenofibrate 160 mg tablet TAKE 1 TABLET BY MOUTH EVERY DAY 08/19 completed Not Available Not Available Not Available fenofibrate nanocrystal lized 145 mg tablet Take 1 tablet every day by oral route. 04/20 completed Not Available Not Available Not Available Symbicort 160 mcg-4.5 mcg/actuati on HFA aerosol inhaler Inhale 2 puffs twice a day by inhalatio n route. 06/07 completed Not Available Not Available Not Available Vyvanse 30 mg capsule TAKE 1 CAPSULE BY MOUTH EVERY DAY 08/19 completed Not Available Not Available Not Available Vyvanse 20 mg capsule TAKE 1 CAPSULE BY MOUTH EVERY DAY FOR 7 DAYS 08/19 completed Not Available Not Available Not Available desvenlafax ine succinate ER 50 mg tablet,exte nded release 24 hr TAKE 1 TABLET BY MOUTH EVERY DAY 08/19 completed Not Available Not Available Not Available armodafinil 150 mg tablet TAKE 1 TABLET BY MOUTH EVERY MORNING 08/19 completed Not Available Not Available Not Available armodafinil 250 mg tablet TAKE 1 TABLET BY MOUTH EVERY DAY 08/19 completed Not Available Not Available Not Available Dulera 200 mcg-5 mcg/actuati on HFA aerosol inhaler Inhale 2 puffs twice a day by inhalatio n route for 30 days. 2022 active Not Available Not Available Not Avai lable Dulera 100 mcg-5 mcg/actuati on HFA aerosol inhaler INL 2 PFS PO BID 08/19 completed Not Available Not Available Not Available ipratropium 0.5 mg-albutero l 2.5 mg/2.5 mL solution for nebulizatio n Inhale by inhalatio n route as needed. 2018 active Not Available Not Available Not Avai lable armodafinil 200 mg tablet TAKE 1 TABLET BY MOUTH EVERY DAY IN THE MORNING 08/19 completed Not Available Not Available Not Available desvenlafax ine succinate ER 25 mg tablet,exte nded release 24 hr TAKE 1 TABLET BY MOUTH EVERY DAY FOR 30 DAYS active Not Available Not Available No t Available Rexulti 1 mg tablet Take 1 tablet every day by oral route. 07/16 completed Not Available Not Available Not Available Narcan 4 mg/actuatio n nasal spray active Not Available Not Available Not Available Trintellix 5 mg tablet Take 1 tablet every day by oral route. 12/27 completed Not Available Not Available Not Available Trintellix 10 mg tablet Take 1 tablet every day by oral route. 12/27 completed Not Available Not Available Not Available Trintellix 20 mg tablet Take 1 tablet every day by oral route. 08/20 completed Not Available Not Available Not Available Afluria Qd 2019-20 (36 mos up)(PF)60 mcg (15 mcg x4)/0.5 mL IM syringe 08/20 completed Not Available Not Available Not Available QuickVue At-Home COVID-19 Test kit TEST DIRECTED TODAY active Not Available Not Available No t Available Vitals Date Recorded Body mass index (BMI) Body height Body weight Provider Name and Address Organization Details Last Updated DateTime 01/07/2021 32.8 kg/m2 172.72 cm 76341.95 g Not Available [facility] 12/22/2022 00:50:25 Date Recorded Body mass index (BMI) Body height Body weight Provider Name and Address Organization Details Last Updated DateTime 02/11/2021 32.8 kg/m2 172.72 cm 30507.95 g Not Available [facility] 12/22/2022 00:50:26 Date Recorded Body mass index (BMI) Body height Oxygen saturation Oxygen saturation in Arterial blood by Pulse oximetry Heart rate Body temperature Body weight Systolic blood pressure Diastolic blood pressure Provider Name and Address Organization Details Last Updated DateTime 31.8 kg/m2 172.72 cm 98 % 98 % 68 /min 97.3 [degF] 63046.8 1 g 116 mm[Hg] 64 mm[Hg] Not Available [facility] 00:50:22 Date Recorded Body weight Body mass index (BMI) Body height Body temperature Heart rate Oxygen saturation Oxygen saturation in Arterial blood by Pulse oximetry Systolic blood pressure Diastolic blood pressure Provider Name and Address Organization Details Last Updated DateTime 3 369664. 69 g 34.1 kg/m2 172.72 cm 97.7 [degF] 76 /min 97 % 97 % 128 mm[Hg] 70 mm[Hg] Shelbie Cardenas RN [facility] [employer] 3 10:00:34 Date Recorded Body height Body temperature Provider N barbara and Address Organization Details Last Updated DateTime 08/19/2023 172.72 cm 97.7 [degF] Kat Funk MA [facility] 08/19/2023 09:59:27 Date Recorded Body mass index (BMI) Body weight Heart rate Oxygen saturation Oxygen saturation in Arterial blood by Pulse oximetry Systolic blood pressure Diastolic blood pressure Provider Name and Address Organization Details Last Updated DateTime 3 34.7 kg/m2 529703. 06 g 95 /min 97 % 97 % 132 mm[Hg] 70 mm[Hg] Sonam Queen MA [facility] 3 10:09:37 Social History Question Answer Notes LastModified by [employer] Details LastModified Time Tobacco Smoking Status Former Smoker quit 2004 [facility] [place], [place] [facility] 08/19/2023 09:58:45 In The 14 Days Before Symptom Onset, Have You Had Close Contact With A Laboratory-confirm ed COVID-19 While That Case Was Ill? No Information n ot available 08/19/2023 In The 14 Days Before Symptom Onset, Have You Had Close Contact With A Person Who Is Under Investigation For COVID-19 While That Person Was Ill? No Information not available 08/19/2023 What Was The Date Of Your Most Recent Tobacco Screening? 03/05/2021 Information not available 08/19/2023 Sex: Unknown Functional Status Question Answer Note LastModified by [employer] Details LastModified Time What is your level of alcohol consumption? Occasional [id number] Information not available 12/22/2022 Do you or have you ever used smokeless tobacco? Never used smokeless tobacco [id number] Information not available 12/22/2022 Do you or have you ever used e-cigarettes or vape? Never used electronic cigarettes Information not available 08/19/2023 Mental Status None recorded. Family History Relationship Description Onset Age of this Age Resolved Age Notes LastModified by Organization Details LastModified Time Mother Asthma [id number] Not available 12/22/2022 00:47:38 Notes:PT WAS ADOPTED Medical History No medical history recorded. Immunizations Vaccine Type Date Status Note Provider Nam e and Address Organization Details Recorded Time COVID-19, mRNA, LNP-S, PF, 100 mcg/0.5mL dose or 50 mcg/0.25mL dose 1 completed Not Available [facility] 12/22/2022 01:00:52 COVID-19, mRNA, LNP-S, PF, 100 mcg/0.5mL dose or 50 mcg/0.25mL dose 1 completed Not Available [facility] 12/22/2022 01:00:52 influenza, unspecified formulation 7 completed Not Available [facility] 12/22/2022 01:00:52 Tdap 5 completed Not Available [facility] 12/22/2022 01:00:52 Influenza, split virus, quadrivalent, PF 9 completed Not Available [facility] 12/22/2022 01:00:53 Past Encounters Encounter ID Performer Location Encounter Start Date Encounter Closed Date Diagnosis/Indication Diagnosis SNOMED-CT Code Diagnosis ICD10 Code Diagnosis Note [id number] [facility] [address] [place] [address] 01/07/2021 00:00:00 01/07/2021 14:34:05 [id number] [facility] [address] [place] [address] 02/11/2021 00:00:00 02/11/2021 16:04:54 [id number] [facility] [address] [place] [address] 03/05/2021 00:00:00 03/05/2021 10:55:31 [id number] Rossy Kristin, [facility] [address] [place] [address] 05/18/2023 09:54:13 05/18/2023 10:40:23 Obstructive sleep apnea syndrome 34884568 G47.33 Study 01/16/19 with AHI 6.6.Geena e set up 08/30/18Re [facility] on CPAP 11.Downloa d with 100% use greater than 4 hoursAHI is 1.4ESS 8He has good use and clinical benefitOSA is well correctedE ncouraged 100% compliance with all sleepFollo w with PCM for labsAdvise d good sleep habits and patterns:- Set a goal for at least 7 to 8 hours of sleep time per day.-Use the bed mainly for sleep and to go to bed only when tired. If unable to fall asleep after 30 minutes, patient should get out of bed but should not engage in any activity that requires sustained mental alertness. -Maintain a regular bedtime and wake-up time even on weekends or days off of work.-Avoi d excessive naps during the daytime. If a nap is necessary, limit it to no more than 30 minutes.-M inimize environmen jonas noise, bright lights, and extremes in bedroom temperatur e.-Avoid alcohol, caffeinate d beverages, and nicotine products for at least 6 hours prior to bedtime.-A void strenuous exercise and large meals for at least 4 hours prior to bedtime.Du e for new machine, ordered todayRT for compliance visit as required by insurance Asthma [id number] J45.90 9 Need current PFTDiscuss ed compliant Dulera use - 2 puffs BIDInstruc joel on techniqueC ontinue albuterol PRNRe-star t montelukas t - ordered today.Reas sess in 3 months, PRN for concerns Allergic rhinitis 896409 04 J30.9 Saline nasal rinsesAvoi d triggersFl onase dailyClari tin daily Fatigue 52800018 R53.83 AHI is well correctedF ollow with PCM for labsReasse ss after new PAP [id number] Rossy Foster, [employer] PRO[employer]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 DIRECTOR-[facility] [address] [place] [address] 08/19/2023 09:58:15 08/19/2023 11:03:18 Obstructive sleep apnea syndrome 26324896 G47.33 Study 01/16/19 with AHI 6.6.Geena e set up 08/30/18[facility] on CPAP 11.Downloa d with 99% use greater than 4 hoursAHI is 2.1He has good use and clinical benefitOSA is well correctedE ncouraged 100% compliance with all sleepFollo w with PCM for labsAdvise d good sleep habits and patterns:- Set a goal for at least 7 to 8 hours of sleep time per day.-Use the bed mainly for sleep and to go to bed only when tired. If unable to fall asleep after 30 minutes, patient should get out of bed but should not engage in any activity that requires sustained mental alertness. -Maintain a regular bedtime and wake-up time even on weekends or days off of work.-Avoi d excessive naps during the daytime. If a nap is necessary, limit it to no more than 30 minutes.-M inimize environmen jonas noise, bright lights, and extremes in bedroom temperatur e.-Avoid alcohol, caffeinate d beverages, and nicotine products for at least 6 hours prior to bedtime.-A void strenuous exercise and large meals for at least 4 hours prior to bedtime.Du tam for new machine 09/09, patient requests APRIA - will order on 08/30RT for compliance visit as required by insurance Asthma [id number] J45.90 9 PFT completed 05/2023Nor mal resultsDis cussed compliant Dulera 200 use with aerochambe r- 2 puffs BIDInstruc joel on techniqueA ssess for decrease in 6 months if no exacerbati ons.Contin ue albuterol PRNContinu e montelukas tHe should follow up in 6 months Allergic rhinitis 877210 04 J30.9 Saline nasal rinses dailyAvoid triggersFl onase dailyClari tin daily Fatigue 00047401 R53.83 AHI is well correctedF ollow with PCM for labs Health Concerns Section Related Observation LastModified by Organization Detai ls LastModified Time None Recorded Concern Status LastModified by Organization Details LastModified Time None Recorded Advance Directives Directive None Recorded Payers Insurance Date Sequence Insurance Name Policy Number Policy Martinez Covered Member ID Martinez Member ID Guarantor Name 08/22/2023 1 [employer] [id number] Mukul Younger [id number] Mukul Younger 08/22/2023 2 [facility] - DOS PRIOR TO 2021 (MEDICAID REPLACEMENT - HMO) Mukul Younger [id number] Mukul Younger 08/18/2023 [facility] [id number] Mukul Younger Notes Date Note Type Note Provider Name and Address Organization Details Recorded Time 3 text/html Mukul presents today to follow up on SABINE, asthma, allergic rhinitisHe has not had a respiratory exacerbation in the last 2 yearsHas had increasing difficulty with sinus drainage and sneezing for the last 7 monthsHe is out of montelukast.Moved about 2 months ago and his house is being renovatedDenies cough and wheezing.No chest painIntermittent compliance with DuleraNo rescue inhaler useHe has a nebulizer but has not had to use this.Denies GERD, well controlled with omeprazoleRecently started claritinContinues nightly use of PAPHe got the wrong mask and tells me he has had more difficulty with leak and comfort.Sleep has been more fragmented and energy levels are fairDenies morning headaches and nocturia SWEETIE Kaplan- [address], [facility] [address], [place], [address], [employer] 05/18/2023 11:15:33 3 text/html Mukul presents today to follow up on SABINE, asthma, allergic rhinitisHe has not had a respiratory exacerbation in the last 2 years requiring steroids or antibioticsRemains compliant with Dulera 200 with rare albuterol use.Endorses some increased coughing in the last few weeks, no change in mucous production.Rare wheezing.Chronic sinus drainage and sneezingCompliant with montelukastMoved about 2 months ago and his house is being renovatedNo chest painHe has a nebulizer but has not had to use this.Denies GERD, well controlled with omeprazoleContinues nightly use of PAP - he did not get a new machinePersistent difficulty with DME company, he would like to switch to [employer]aSleep remains fragmented and energy levels are fairDenies morning headaches and nocturia PIA [facility] [address], [facility] [address], [place], [address], [email or web address] 08/19/2023 13:01:00
[2025-04-10 09:29] LABS: Hemoglobin A1C 5.5 % (<5.7)
[2025-04-10 09:32] LABS: Cholesterol 210 mg/dL (0-200); HDL Direct 43 mg/dL; Triglycerides 137 mg/dL (<150)
[2025-04-10 09:40] LABS: Alanine Aminotransferase 29 U/L (6-50); Albumin Level 4.4 g/dL (3.5-5.1); Alkaline Phosphatase 79 U/L (38-126); Anion Gap 9 mmol/L (4-12); Aspartate Amino Transferase 35 U/L (17-59); Bilirubin,Total 0.3 mg/dL (0.2-1.3); Blood Urea Nitrogen 14 mg/dL (9-20); Calcium 9.4 mg/dL (8.4-10.2); Carbon Dioxide 27 mmol/L (22-30); Chloride 104 mmol/L (98-107); Estimated Glomerular Filt Rate > 60; Glucose 88 mg/dL (65-110); Potassium 4.1 mmol/L (3.4-5.0); Sodium 140 mmol/L (137-145); Total Protein 8.2 g/dL (6.3-8.2)
[2025-04-10 09:44] LABS: LDL Cholesterol Direct 123 mg/dL
== END 2025-04-10 07:29 | disposition home or self-care (01) ==
PROVIDERS: PCP Family Medicine
DX: E78.5 Hyperlipidemia, unspecified (principal); R73.03 Prediabetes
CPT/HCPCS: 36415; 80053; 80061; 83036; 84443